=== PATIENT | female | born 1965 | race Caucasian/White ===

== ENCOUNTER 2023-10-11 09:29 | Observation (INO) ==
--- NOTE | 2023-10-11 09:50 | Emergency Department Note ---
Impression & Plan Acute hip pain ADMIT ED Provider Note HPI: History obtained from patient. The patient is a 57-year-old female with history of left hip prosthesis performed about [address] Burnham of orthopedics, presents the emergency department with a chief complaint of left hip pain after mechanical fall today. Patient states she fell in her house on some liquid that was on the floor and she fell on her left knee. Patient states she began to have pain acutely in her left hip after the fall. She denies any pain in her left knee on arrival. Patient states the pain is in the area of her left hip, she does have some limited ability to flex at the left hip but states that is very painful. Patient states she was not able to put weight on the left lower extremity after the fall but she was able to ambulate up on her right lower extremity and utilize the wall for stability to call for assistance. ROS: - Per HPI Differential Diagnosis: Left hip fracture, dislocated prosthesis of the left hip, hardware failure/fracture of the left hip, soft tissue injury/contusion, femur fracture, pelvic fracture, amongst other potential pathologies. *Outpatient medications and allergy history reviewed. PE: General: Alert, obese, no acute distress HEENT: Normocephalic, trachea midline Eyes: Extraocular eye movement is intact, no scleral erythema Pulmonary: Clear to auscultation bilaterally, no wheezing Cardio: Regular rate and rhythm GI: Abdomen is soft to palpation : No suprapubic tenderness MSK: No evidence of trauma or malformation of the extremities, no edema, limited ability to flex at the left hip secondary to pain, motor and sensory function is intact distally in the left foot Skin: No evidence of rash Neuro: Alert, no focal deficits Psychiatric: Cooperative INDEPENDENT INTERPRETATIONS: panel monitor: (As interpreted by myself): - An order was placed for continuous cardiac monitoring - Patient was noted to be in sinus rhythm with a rate of 65 Interventions provided in ED: -IV morphine, IV Zofran, Flexeril Medical Decision Making: X-ray imaging of the left hip as well as the left knee do not show any evidence of fracture or dislocation. Patient was given IV morphine and IV Zofran for pain. Lab work shows no leukocytosis, hemoglobin is stable at 16.6, platelet count is normal, CMP does not show any evidence of any critical findings. On my reassessment patient is still having pain in her left hip with movement and did not feel that she could put weight on the leg despite best efforts, therefore CT imaging of the pelvis was obtained that does not show any evidence of any occult fracture. Patient was given another round of pain medication and on reevaluation she was still not able to utilize a walker as she could not move her leg very well secondary to pain at the left hip. Given the patient's ambulatory dysfunction and the fact that she does live alone, I did not feel that she was safe for discharge with the current amount of pain and ambulatory dysfunction that she was having. I feel she would benefit from PT/OT consultation at this time. I discussed with case management and secondary to insurance patient was not able to be directly placed to a rehab facility and will require admission for PT/OT consultation first. Case was then discussed with the on-call hospitalist, Dr. Toure, and the patient was placed for admission in stable condition for further management. Patient was in agreement to this plan. Consultants/Discussions held with other healthcare providers: -Hospitalist, Dr. Toure Disposition discussion held by myself with: -Patient and patient's friend at the bedside Diagnosis: 1. Left hip pain status post fall, acute 2. Ambulatory dysfunction, acute, status post fall 3. History of left hip prosthesis Disposition: Admission Josiah Esparza DO Emergency Medicine Past Med/Surg History Problem List (Updated 10/11/23 @ 13:15 by Josiah Esparza DO) Acute hip pain (Acute) Encounter for pre-operative examination Medical History (Updated 10/11/23 @ 13:15 by Josiah Esparza DO) Morbid obesity Sleep apnea CPAP Surgical History History of wisdom tooth extraction History of arthroscopy RT KNEE History of total hip arthroplasty LEFT History of bilateral tubal ligation History of section X 3 History of dilatation and curettage History of colonoscopy H/O varicose vein stripping Family History Grandfather (Maternal) Family history of diabetes mellitus Grandfather (Paternal) Family history of diabetes mellitus Grandmother (Paternal) Family history of diabetes mellitus Grandmother (Maternal) Family history of diabetes mellitus Social History Smoking Status: Current every day smoker Tobacco Type: Cigarettes Cigarettes Per Day: 10-15 CIGARETTES PER DAY X 9 YEARS; Second Hand Exposure: No; Do You Dip or Chew Tobacco: No; Hx Alcohol Use: Yes Alcohol type: beer Hx Substance Use: No Preferred Language: Cameroonian Communication Ability: Effective Toll Settlement Clerk Required: No Beliefs That Will Affect Care: None Current Living Situation: Spouse Feels Safe at Home: Yes Assistive Devices: CPAP and Glasses Allergies Allergies Allergy/AdvReac Type Severity Reaction Status Date / Time clindamycin Allergy Hives Verified 07/09/23 09:38 Home Meds Home Medications Medication Instructions Recorded Confirmed celecoxib 200 mg capsule 200 mg PO BID 07/09/23 10/11/23 semaglutide (weight loss) 0.25 0.25 mg subcut WK 10/11/23 10/11/23 mg/0.5 mL subcutaneous pen injector (Wegovy) Previous Rx's Medication Instructions Recorded ondansetron 4 mg disintegrating 4 mg PO Q6H PRN nausea and 07/09/23 tablet vomiting #15 tabs cyclobenzaprine 10 mg tablet 10 mg PO TID PRN muscle spasm #30 10/11/23 tabs Results & Data (ED) Vital Signs Vital Signs - 24 hr 10/11/23 09:45 10/11/23 09:51 10/11/23 10:45 Temperature 36.5 C Temperature Source Oral Pulse Rate 68 71 67 Pulse Rhythm Regular Respiratory Rate 16 16 Respiratory Effort / Characteristics Non-Labored Respiratory Depth Normal Blood Pressure 121/76 Blood Pressure Mean 91 Pulse Oximetry 95 96 Oxygen Delivery Method Room Air Room Air Sepsis Recent Fever Within 48 Hours No Sepsis New/Unexplained Change in Mental Status N/A Sepsis Action Taken by Nursing No Action Required 10/11/23 11:00 10/11/23 11:30 10/11/23 12:12 Temperature Temperature Source Pulse Rate 64 71 63 Pulse Rhythm Respiratory Rate 20 15 23 Respiratory Effort / Characteristics Respiratory Depth Blood Pressure 114/70 114/67 96/52 L Blood Pressure Mean 83 83 66 Pulse Oximetry 98 96 98 Oxygen Delivery Method Sepsis Recent Fever Within 48 Hours Sepsis New/Unexplained Change in Mental Status Sepsis Action Taken by Nursing Laboratory Data 10/11/23 09:52 10/11/23 09:52 Lab Results 10/11/23 Range/Units 09:52 WBC 9.46 (4.8-10.8) K/ul RBC 5.83 H (4.20-5.40) M/uL Hgb 16.6 H (12.0-16.0) g/dl Hct 50.0 H (37.0-47.0) % MCV 85.8 (80.0-100.0) fL MCH 28.5 (25.0-34.0) pg MCHC 33.2 (32.0-36.0) g/dL RDW Std Deviation 45.8 (36.4-46.3) fL RDW Coeff of Elvia 14.6 H (11.5-14.5) % Plt Count 263 (130-400) K/uL MPV 9.5 (9.4-12.4) fL Immature Gran % (Auto) 0.5 % Neut % (Auto) 73.8 % Lymph % (Auto) 17.9 % [place] % (Auto) 6.1 % Eos % (Auto) 1.2 % Baso % (Auto) 0.5 % Neut # (Auto) 6.98 H (1.40-6.50) K/uL Lymph # (Auto) 1.69 (1.20-3.40) K/uL [place] # (Auto) 0.58 (0.11-0.59) K/uL Eos # (Auto) 0.11 (0.00-0.50) K/uL Baso # (Auto) 0.05 (0.00-0.20) K/uL Immature Gran # (Auto) 0.05 (0.01-0.20) K/uL PT 10.3 (9.0-12.0) Seconds INR 0.9 (0.9-1.1) Sodium 137 (136-145) mmol/L Potassium 4.3 (3.5-5.1) mmol/L Chloride 105 (98-107) mmol/L Carbon Dioxide 26 (21-32) mmol/L Anion Gap 6 (3-11) BUN 15 (6-23) mg/dl Creatinine 0.82 (0.6-1.2) mg/dl Est Cr Clr Drug Dosing 105.8 ml/min Est GFR ( Amer) 92.1 ml/min Est GFR (Non-Af Amer) 79.4 ml/min BUN/Creatinine Ratio 18.3 (10-20) Glucose 99 (70-99(Fasting)) mg/dl Calcium 9.6 (8.6-10.3) mg/dl Total Bilirubin 0.5 (0.2-1.0) mg/dl AST 19 (13-39) U/L ALT 18 (7-52) U/L Alkaline Phosphatase 62 (34-104) U/L Total Protein 7.5 (6.0-8.3) gm/dl Albumin 4.3 (3.4-5.0) gm/dl Globulin 3.2 (2.5-4.0) gm/dl Albumin/Globulin Ratio 1.3 (0.9-2) Lipase 21 (11-82) U/L Administered Medications Discontinued Medications Cyclobenzaprine HCl (Cyclobenzaprine Hcl 10 Mg Tab) 10 mg PO NOW STA Stop: 10/11/23 15:05 Last Admin: 10/11/23 15:06 Dose: 10 mg Documented By: SANG Morphine Sulfate (Morphine Sulfate 4 Mg/Ml 1 Ml Carp\Vial) 4 mg IV NOW STA Stop: 10/11/23 09:49 Last Admin: 10/11/23 09:58 Dose: 4 mg Documented By: ROBEL Morphine Sulfate (Morphine Sulfate 4 Mg/Ml 1 Ml Carp\Vial) 4 mg IV NOW STA Stop: 10/11/23 13:32 Last Admin: 10/11/23 13:38 Dose: 4 mg Documented By: ROBEL Ondansetron HCl (Ondansetron Inj 2 Mg/Ml 2 Ml Vial) 4 mg IV NOW STA Stop: 10/11/23 09:49 Last Admin: 10/11/23 09:58 Dose: 4 mg Documented By: ROBEL Oxycodone/Acetaminophen (Percocet 5/325mg Homepack) 1 each PO UD ONE Stop: 10/11/23 14:44 Last Admin: 10/11/23 15:05 Dose: 1 each Documented By: SANG Imaging Data Radiologist's Impression: Hip/Pelvis X-Ray 10/11/23 09:46 XR hip JACKSON 2v w pelvis HISTORY: 57 years-old Female fall. L hip pain acute hemipelvis and left hip status post fall COMPARISON: CT 07/09/2023 TECHNIQUE: AP view of the pelvis with 2 views of the hips FINDINGS: Unremarkable appearance of the left hip arthroplasty. Surgical anchors noted within the left greater tuberosity. Mild osteoarthritis of the right hip. No acute fracture or dislocation. IMPRESSION: 1. No acute fracture or dislocation. 2. Unremarkable appearance of the left hip arthroplasty. ACT 112: Negative or not required by law. The above report was generated using voice recognition software. It may contain grammatical, syntax or spelling errors. Electronically signed by: Wesly Saavedra M.D. 10/11/2023 11:09 AM Knee X-Ray 10/11/23 09:50 LEFT KNEE 2 VIEWS CLINICAL HISTORY: Fall. Left knee pain. FINDINGS: AP and crosstable lateral views of the left knee are obtained. No prior studies are available for comparison at the time of dictation. The skeletal structures are well mineralized. No fracture is seen. The joint spaces are maintained. There are marginal osteophytes and degenerative beaking of the tibial spine. No joint effusion is seen. A calcified fabella is incidentally noted. There is prepatellar soft tissue swelling. IMPRESSION: No acute bony abnormality is identified. Electronically signed by: Conor Salgado M.D. 10/11/2023 10:[address] 10/11/23 11:23 CT pelvis wo con HISTORY: 57 years-old Female L hip/groin pain s/p fall acute pain of the left hip status post fall COMPARISON: Radiographs of same day, CT 07/09/2023 TECHNIQUE: Multiple axial CT images of the pelvis were obtained without IV contrast. A dose lowering technique was used consistent with the principals of ALARA. FINDINGS: Atherosclerosis of the aorta. Mildly distended urinary bladder. Slight prominence of the anteflexed uterus with possible uterine fibroids. No bowel obstruction or bowel wall thickening. No free fluid. No lymphadenopathy. Unremarkable appearance of the musculature. Degenerative changes of the imaged lower lumbar spine. Mild degeneration of the SI joints. No acute sacral insufficiency fracture identified. Moderate degeneration of the pubic symphysis. Mild right hip osteoarthritis. Unremarkable appearance of the visualized left hip arthroplasty. Study is limited secondary to surrounding streak artifact. Surgical anchors in the left greater trochanter. IMPRESSION: 1. No acute fracture or dislocation identified. 2. Unremarkable appearance of the left hip arthroplasty. ACT 112: Negative or not required by law. The above report was generated using voice recognition software. It may contain grammatical, syntax or spelling errors. Electronically signed by: Wesly Saavedra M.D. 10/11/2023 1:00 PM Discharge Plan Visit Data Chief Complaint: Fall Stated Complaint: FALL-L HIP PAIN ED Provider: Josiah Esparza Discharge Problem: Acute hip pain Patient Disposition: Home - Self-Care Condition: Good Discharge Instructions Activity Restrictions/Additional Instructions: Please follow-up with your primary care doctor in 2 to 3 days for reassessment and further management. Please follow-up with orthopedics in the office if you continue to have pain in the area of your left hip prosthesis. Please utilize Tylenol or Motrin as needed for pain, please follow dosage instructions for these medications as indicated on the packaging. Please return the emergency room if you have any new or worsening symptoms. Forms Stand Alone Forms: [facility], Important Visit Information Prescriptions Prescriptions: New cyclobenzaprine 10 mg tablet 10 mg PO TID PRN (Reason: muscle spasm) Qty: 30 0RF No Action celecoxib 200 mg capsule 200 mg PO BID Rx Instructions: filled june 2023 30 day supply ondansetron 4 mg tablet,disintegrating 4 mg PO Q6H PRN (Reason: nausea and vomiting) Qty: 15 0RF Rx Instructions: filled july 2023, 4 day supply Wegovy 0.25 mg/0.5 mL pen injector 0.25 mg SUBCUT WK Rx Instructions: filled 10/04/23 Referrals Referrals: Juan Burnham MD [Surgeon] - Helio Orozco D.O. [Primary Care Provider] - Discharge Problem: Acute hip pain Qualifiers: Laterality: left Qualified Code(s): M25.552 - Pain in left hip
[2023-10-11] MEDS: ONDANSETRON INJ 2 MG/ML 2 ML VIAL IV STA (09:58)
[2023-10-11] MEDS: MoRPHine SULFATE 4 MG/ML 1 ML CARP\\VIAL IV STA ×2 (09:58→13:38)
[2023-10-11 10:09] LABS: Basophils # (auto) 0.05 K/uL (0.00-0.20); Basophils % (auto) 0.5 %; Eosinophils # (auto) 0.11 K/uL (0.00-0.50); Eosinophils % (auto) 1.2 %; Hemoglobin 16.6 g/dl (12.0-16.0); Immature Granulocytes # (auto) 0.05 K/uL (0.01-0.20); Immature Granulocytes % (auto) 0.5 %; Lymphocytes # (auto) 1.69 K/uL (1.20-3.40); Lymphocytes % (auto) 17.9 %; Mean Corpuscular Hemoglobin 28.5 pg (25.0-34.0); Mean Corpuscular Hgb Conc 33.2 g/dL (32.0-36.0); Mean Corpuscular Volume 85.8 fL (80.0-100.0); Mean Platelet Volume 9.5 fL (9.4-12.4); Monocytes # (auto) 0.58 K/uL (0.11-0.59); Monocytes % (auto) 6.1 %; Neutrophils # (auto) 6.98 K/uL (1.40-6.50); Neutrophils % (auto) 73.8 %; Platelet Count 263 K/uL (130-400); RDW Coefficient of Variation 14.6 % (11.5-14.5); RDW Standard Deviation 45.8 fL (36.4-46.3); Red Blood Count 5.83 M/uL (4.20-5.40); White Blood Count 9.46 K/ul (4.8-10.8)
[2023-10-11 10:31] LABS: INR 0.9 (0.9-1.1); Prothrombin Time 10.3 Seconds (9.0-12.0)
[2023-10-11 10:32] LABS: Albumin Globulin Ratio 1.3 (0.9-2); Albumin Level 4.3 gm/dl (3.4-5.0); BUN Creatinine Ratio 18.3 (10-20); Bilirubin,Total 0.5 mg/dl (0.2-1.0); Calcium 9.6 mg/dl (8.6-10.3); Creatinine Clr Calc Pharmacy 105.8 ml/min; Est GFR (African American) 92.1 ml/min; Est GFR (Non-African American) 79.4 ml/min; Globulin 3.2 gm/dl (2.5-4.0); Potassium 4.3 mmol/L (3.5-5.1); Total Protein 7.5 gm/dl (6.0-8.3)
--- NOTE | 2023-10-11 10:39 | XRay Report ---
LEFT KNEE 2 VIEWS CLINICAL HISTORY: Fall. Left knee pain. FINDINGS: AP and crosstable lateral views of the left knee are obtained. No prior studies are availab le for comparison at the time of dictation. The skeletal structures are well mineralized. No fracture is seen. The joint spaces are maintained. There are marginal osteophytes and degenerative beaking of the tibial spine. No joint effusion is seen. A calcified fabella is incidentally noted. There is pre patellar soft tissue swelling. IMPRESSION: No acute bony abnormality is identified. Electronically signed by: Conor Salgado M.D. 10/11/2023 10:38 AM
--- NOTE | 2023-10-11 11:10 | XRay Report ---
XR hip JACKSON 2v w pelvis HISTORY: 57 years-old Female fall. L hip pain acute hemipelvis and left hip status post fall COMPARISON: CT 07/09/2023 TECHNIQUE: AP view of the pelvis with 2 views of the hips FINDINGS: Unremarkable appearance of the left hip arthroplasty. Surgical anchors noted within the left greater tuberosity. Mild osteoarthritis of the right hip. No acute fracture or dislocation. IMPRESSION: 1. No acute fracture or dislocation. 2. Unremarkable appearance of the left hip arthroplasty. ACT 112: Negative or not required by law. The above report was generated using voice recognition software. It may contain grammatical, syntax o r spelling errors. Electronically signed by: Wesly Saavedra M.D. 10/11/2023 11:09 AM
--- OUTSIDE RECORDS SUMMARY | 2023-10-11 11:51 | External Medical Summary ---
Author Name Unknown Address Unknown Organization [facility]:[address] [place] [address] Laboratory Report Ordering Provider Test Date Status LUIS MATHUR 08/04/2023 06:31 Final Observation Date Value Abnormality Reference (Units ) Status WBC 08/04/2023 09:16 8.8 3.1-9.2 (10^3/M3) Final RBC 08/04/2023 09:16 5.60 Above high normal 3.70-5.50 (10^6/M3) Final Hemoglobin 08/04/2023 09:16 17.1 Above high normal 11.5-16.1 (GR/DL) Final HCT 08/04/2023 09:16 49.5 Above high normal 34.5-47.8 (%) Final MCV 08/04/2023 09:16 88.5 82.6-95.8 (CU MICR) Final MCH 08/04/2023 09:16 30.6 27.9-32.9 (NANCY GR) Final MCHC 08/04/2023 09:16 34.6 32.6-35.4 (%) Final RDW 08/04/2023 09:16 14.4 11.4-14.6 (%) Final PLT 08/04/2023 09:16 300 140-350 (10^3/M3) Final MPV 08/04/2023 09:16 7.7 7.0-10.6 (CU MICR) Final Neutrophils/100 leukocytes in Blood 08/04/2023 09:16 61.7 40.0-75.0 (%) Final Lymphs % 08/04/2023 09:16 27.1 17.0-45.0 (%) Final Monos 08/04/2023 09:16 7.9 1.0-11.0 (%) Final %EOS 08/04/2023 09:16 2.7 0.0-6.0 (%) Final Basos 08/04/2023 09:16 0.6 0.0-2.0 (%) Final Neutrophils [#/volume] in Semen by Manual count 08/04/2023 09:16 5.4 1.5-8.0 (10^3/M3) Final Lymphs % 08/04/2023 09:16 2.4 0.8-3.2 (10^3/M3) Final Monos 08/04/2023 09:16 0.7 0.0-0.8 (10^3/M3) Final #EOS 08/04/2023 09:16 0.2 0.0-0.4 (10^3/m3) Final #BASO 08/04/2023 09:16 0.1 0.0-0.2 (10^3/m3) Final Performing Location [facility] [address] [place] [address]
--- OUTSIDE RECORDS SUMMARY | 2023-10-11 11:51 | External Medical Summary | Continuity of Care Document ---
Author Name Unknown Organization [facility] Address [address] [place] [address] Phone [phone] Problems Active Problems Provider Date Depressive disorder Mayra Ferrer PA-C Onset: Gastroesophageal reflux disease ZITA Nieto Onset: 09/27/2015 Obesity Mayra Ferrer PA-C Onset: 2015 Mixed hyperlipidemia Mayra Ferrer PA-C Onset: 0 09/27/2015 Smoker Melly Rizo PA-C Onset: 09/2021 Social History Type Date Description Comments Sex Unknown Tobacco Use Reviewed: 06/16/23 Current Cigarette Smok er Smoking Status Reviewed: 06/16/23 Current Cigarette Sm oker Tobacco Use Reviewed: 06/16/23 Never Smoked Cigars Tobacco Use Reviewed: 06/16/23 Never Smoked A Pipe Smokeless Tobacco 06/16/2023 Never Used Smokeless To bacco Allergies and adverse reactions Active Allergies Criticality Reaction | Severity Comments Date Celebrex Unable to assess criticality 07/28/2023 Inactive Allergies NKDA Unable to assess criticality 09/27/2015 Medications Active Medications SIG Qnty Indications Order ing Provider Date [id number] Tablets take 1 tablet by mouth twice a day Unknown 07/09/[id number] 1 by mouth twice daily Unknown 07/09/2023 Cpap Autotitration Machine With Mask And ALL SuppliesDevice dx sleep apnea auto titrate 7-20 cm with humidified air 1units G47.33 Lyric Durant MD, PhD 03/31/2016 History Medications [id number] Capsules 1 bid x 2 weeks Juan Burnham MD 06/29/2023 - 07/12/2023 Medications Administered in Office Medication SIG Qnty Indications Ordering Provider Date Injection Methylprednisolone Acetate 20 MGInjection ZITA Simpson 04/06/2018 Injection Methylprednisolone Acetate 20 MGInjection Nando Retana 02/18/2017 Immunizations CPT Code Status Date Vaccine Lot # [id number] Given 07/24/2023 Shingrix 41064 Given 02/06/2023 Shingrix 25605 Given 02/06/2023 Shingrix 66059 Given 06/24/2021 Moderna Covid-1 9 Vaccine 50mcg Booster-EMR Doc Only [id number] 02321 Given 07/23/2020 Moderna Sars-Co v-2 (Cov-19) vacc,100 mcg/ 0.5 mL 12Y+EMR Doc Only [id number] 03528 Given 06/25/2020 Moderna Sars-Co v-2 (Cov-19) vacc,100 mcg/ 0.5 mL 12Y+EMR Doc Only [id number] 91167 Given 10/15/2011 Tdap (Tetanus, diphtheria & acel. pertussis) Adacel or Boostrix 43548 Refused 01/14/2023 Moderna Sars-Co v-2 (Covid-19) Vaccine, BiValent Booster [id number] Refused 01/14/2023 Influenza Virus Vaccine, Quadrivalent, Split Virus, Im Use 6-35 [id number] Refused 01/15/2022 Influenza Virus Vaccine, Quadrivalent, Split Virus, Im Use 6-35 47719 Refused 01/25/2019 Influenza Virus Vaccine, Quadrivalent, Im Use [id number] Refused 04/06/2018 Influenza Virus Vaccine, Quadrivalent, [place] Use [id number] Refused 01/12/2017 Influenza Virus Vaccine, Quadrivalent, Im Use 90435 Refused 02/25/2016 Influenza Virus Vaccine, Quadrivalent, Im Use [id number] Refused 09/27/2015 Influenza Virus Vaccine, Quadrivalent, Im Use Vital Signs Date Vital Result Comment 06/16/2023 9:26am BP Systolic 118 mmHg BP Diastolic 80 mmHg Body Temperature 98.1 F Heart Rate 80 /min Respiratory Rate 18 /min Weight 282.00 lb Weight 127.915 kg 02/11/2023 8:26am BP Systolic 110 mmHg BP Diastolic 76 mmHg Body Temperature 98.3 F Heart Rate 76 /min Respiratory Rate 16 /min Weight 261.38 lb Weight 118.560 kg Results Test Acquired Date Facility Test Result H/L Range N ote Laboratory test finding 08/04/2023 [facility] [address] [place] [address] [phone] Insulin <pending> CBC W/Diff 02/11/2023 [facility] [address] [place], [place] [id number] [phone] WBC 8.6 10^3/M3 3.1-9.2 RBC 5.92 10^6/M3 High 3.70-5.50 HGB 17.5 GR/DL High 11.5-16.1 HCT 52.2 % High 34.5-47.8 MCV 88.1 CUMICR 82.6-95.8 MCH 29.5 PICOGR 27.9-32.9 MCHC 33.5 % 32.6-35.4 RDW 14.4 % 11.4-14.6 PLT 315 10^3/M3 140-350 MPV 8.0 CUMICR 7.0-10.6 %Neut 58.6 % 40.0-75.0 %Lymph 31.5 % 17.0-45.0 %[place] 5.3 % 1.0-11.0 %Eos 3.8 % 0.0-6.0 %Baso 0.8 % 0.0-2.0 #Neut 5.0 10^3/M3 1.5-8.0 #Lymph 2.7 10^3/M3 0.8-3.2 #[place] 0.5 10^3/M3 0.0-0.8 #Eos 0.3 10^3/m3 0.0-0.4 #Baso 0.1 10^3/m3 0.0-0.2 Laboratory test finding 02/11/2023 [facility] [address] [place] [address] [phone] Sed Rate 6 0-20 Comp. Met 02/11/2023 [facility] [address] [place] [address] [phone] Glucose 90 mg/dL 70-110 BUN 16 mg/dL 6-25 Creatinine 0.8 mg/dL 0.5-1.2 Sodium 141 mEq/L 135-145 Potassium 4.7 mEq/L 3.5-5.0 Chloride 104 mEq/L 95-107 Co-2 25 mEq/L 24-31 Alk Phos 60 IU/L 43-122 Alt(SGPT) 16 IU/L 10-40 Ast(Sgot) 16 IU/L 3-42 T.Bilirubin 0.5 mg/dL 0.1-1.3 Calcium 9.9 mg/dL 8.5-10.6 Tot.Protein 7.1 g/dL 5.8-8.0 Albumin 4.2 g/dL 3.0-5.2 Globulin 2.9 g/dL 2.0-3.4 GFR 79 ML/MIN/1.73SQM >60 Procedures Date Code Description Status 08/04/2023 83877 Venipuncture Routine Complet ed 06/16/2023 G2211 Continuation of care e/m vis it add on Completed 02/11/2023 29907 Venipuncture Routine Complet ed 11/18/2022 [id number] Mammogram Completed 04/10/2016 [id number] Colonoscopy Completed Medical Devices Description No Information Available Encounters Type Date Location Provider Dx Diagnosis Office Visit 06/16/2023 9:30a [facility] Melly Rizo PA-C G47.33 Obstructive sleep apnea (adult) (pediatric) Office Visit 02/11/2023 8:30a [facility] Melly Rizo PA-C R59.0 Localized enlarged lymph nodes Assessments Date Code Description Provider 08/04/2023 E78.5 Hyperlipidemia, unspecified Lab - [facility] 08/04/2023 R73.01 Impaired fasting glucose Lab - [facility] 08/04/2023 E66.01 Morbid (severe) obesity due to excess calories Lab - [facility] 06/16/2023 G47.33 Obstructive sleep apnea (akila lt) (pediatric) Melly Rizo PA-C 02/11/2023 R59.0 Localized enlarged lymph nod es Melly Rizo PA-C Plan of Treatment Future Appointment(s):* 08/11/2023 10:00 am - Melly Rizo PA-C at [facility] 06/16/2023 - Melly Rizo PA-C* G47.33 Obstructive sleep apnea (adult) (pediatric)* Comments:* The patient is doing well with her auto titrating CPAP machine. She is noticing great benefit from it and is compliant with it. Functional Status Description No Information Available Mental Status Description No Information Available Referrals Refer to Reason for Referral Status Appt Brad e [facility] Hematology/Oncology H&H still elevated Scheduled 09/01/[address] [place] [address] [phone]
--- OUTSIDE RECORDS SUMMARY | 2023-10-11 11:51 | External Medical Summary | Continuity of Care Document ---
Author Name Unknown Organization [facility] Address [address] [place] [id number] Encounter [facility] [id number] Date(s): 08/02/23 - 08/02/23 [facility] [id number], [place] [address] [phone] Encounter Diagnosis Erythrocytosis(Discharge Diagnosis) - 08/02/23 Discharge Disposition: Home or Self Care Attending Physician: MD Nathanael, Kalen Black Referring Physician: JOSE R Rizo, Melly Cano Allergies, Adverse Reactions, Alerts Substance Reaction Severity Status CeleBREX Stomach ulcer Active Medications No Known Medications Mental Status 08/02/23 Barriers to Learning one year None evide nt Mandatory Health Literacy Documentation Yes Health Literacy Communication Barriers N ever Primary Language Uzbek Problem List Condition Confirmation Course Effective Dates Status Health St atus Informant Erythrocytosis Confirmed Active CLEMENTE on CPAP Confirmed Active Diagnosis Diagnosis Type Effective Dates Health Status Cl inical Service Informant Erythrocytosis Discharge Diagnosis 08/02/23 Non-Specified Vital Signs Most recent to oldest [Reference Range]: 1 Height 168 cm (08/02/23 9:29 AM) Patient Weight 126.8 kg (08/02/23 9:29 AM) Body Mass Index 44.93 kg/m2 (08/02/23 9:29 AM) Temperature [36.5-37.9 DegC] 35.7 DegC *LOW* (08/02/23 9:29 AM) Heart Rate 75 bpm (08/02/23 9:29 AM) Respiratory Rate 18 br/min (08/02/23 9:29 AM) Blood Pressure 141/79mmHg (08/02/23 9:29 AM) Cuff Pulse Pressure 62 mmHg (08/02/23 9:29 AM) BP Location # 1 Left Arm (08/02/23 9:29 AM) Social History Social History Type Response Smoking Status Current every day he nette smoker Sex Female Patient Care team information Care Team Related Persons Name: GUALBERTO KONG
--- OUTSIDE RECORDS SUMMARY | 2023-10-11 11:51 | External Medical Summary | Continuity of Care Document ---
Author Name Unknown Organization [facility] Address [address] [place] [address] Phone [phone] Problems Active Problems Provider Date Depressive disorder Mayra Ferrer PA-C Onset: Gastroesophageal reflux disease ZITA Nieto Onset: 09/27/2015 Obesity Mayra Ferrer PA-C Onset: 2015 Mixed hyperlipidemia Mayra Ferrer PA-C Onset: 0 09/27/2015 Smoker Melly Rizo PA-C Onset: 09/2021 Obstructive sleep apnea syndrome Melly Rizo PA-C Onset: Note: Document: 08/02/23 - H ematology Consult Social History Type Date Description Comments Sex [...] SIG Qnty Indications Order ing Provider Date [id number] Tablets take 1 tablet by mouth twice a day Unknown 07/09/[id number] 1 by mouth twice daily Unknown 07/09/2023 Cpap Autotitration Machine With Mask And ALL SuppliesDevice dx sleep apnea auto titrate 7-20 cm with humidified air 1units G47.33 Lyric Durant MD, PhD 03/31/2016 History Medications [id number] Capsules 1 bid x 2 weeks Juan Burnham MD 06/29/2023 - 07/12/2023 Medications Administered in Office Medication SIG Qnty Indications Ordering Provider Date Injection Methylprednisolone Acetate 20 MGInjection ZITA Simpson 04/06/2018 Injection Methylprednisolone Acetate 20 MGInjection Nando Retana 02/18/2017 Immunizations CPT Code Status Date Vaccine Lot # [id number] Given 07/24/2023 Shingrix 23042 Given 02/06/2023 Shingrix 66585 Given 02/06/2023 Shingrix 10503 Given 06/24/2021 Moderna Covid-1 9 Vaccine 50mcg Booster-EMR Doc Only [id number] 95237 Given 07/23/2020 Moderna Sars-Co v-2 (Cov-19) vacc,100 mcg/ 0.5 mL 12Y+EMR Doc Only [id number] 21748 Given 06/25/2020 Moderna Sars-Co v-2 (Cov-19) vacc,100 mcg/ 0.5 mL 12Y+EMR Doc Only [id number] 39355 Given 10/15/2011 Tdap (Tetanus, diphtheria & acel. pertussis) Adacel or Boostrix 04603 Refused 01/14/2023 Moderna Sars-Co v-2 (Covid-19) Vaccine, BiValent Booster 12y+ 05941 Refused 01/14/2023 Influenza Virus Vaccine, Quadrivalent, Split Virus, Im Use 6-35 02320 Refused 01/15/2022 Influenza Virus Vaccine, Quadrivalent, Split Virus, Im Use 6-35 63985 Refused 01/25/2019 Influenza Virus Vaccine, Quadrivalent, Im Use 86982 Refused 04/06/2018 Influenza Virus Vaccine, Quadrivalent, Im Use 95764 Refused 01/12/2017 Influenza Virus Vaccine, Quadrivalent, Im Use 31713 Refused 02/25/2016 Influenza Virus Vaccine, Quadrivalent, Im Use 65038 Refused 09/27/2015 Influenza Virus Vaccine, Quadrivalent, Im [...] Facility Test Result H/L Range N ote Comp. Met 08/04/2023 [facility] [address] [place] [address] [phone] Glucose 102 mg/dL 70-110 1 BUN 16 mg/dL 6-25 Creatinine 0.8 mg/dL 0.5-1.2 Sodium 140 mEq/L 135-145 Potassium 4.6 mEq/L 3.5-5.0 Chloride 104 mEq/L 95-107 Co-2 27 mEq/L 24-31 Alk Phos 61 IU/L 43-122 Alt(SGPT) 16 IU/L 10-40 Ast(Sgot) 14 IU/L 3-42 T.Bilirubin 0.6 mg/dL 0.1-1.3 Calcium 9.5 mg/dL 8.5-10.6 Tot.Protein 7.2 g/dL 5.8-8.0 Albumin 4.3 g/dL 3.0-5.2 Globulin 2.9 g/dL 2.0-3.4 GFR 79 ML/MIN/1.73SQM >60 Lipid 08/04/2023 [facility]. [address] [place], [place] [id number] [phone] Cholesterol 202 mg/dL High 0-200 2 Triglyceride 145 mg/dL 0-150 3 HDLD 40 mg/dL See Comment 4 Measured LDL 161 mg/dL High 0-130 5 Calc VLDL 29.0 mg/dL See Comment 6 Chol/HDL 5.0 RATIO See Comment 7 Non-HDL 162 mg/dL See Comment 8 Hba1c 08/04/2023 [facility] [address] [place] [address] [phone] A1c 5.70 % 4.70-6.50 9 Laboratory test finding 08/04/2023 [facility] [address] [place], [place] [id number] [phone] Insulin 17.90 uIU/mL 1.90-23.00 TSH With Reflex 08/04/2023 [facility] [address] [place] [address] [phone] TSH (Reflex) 2.29 uIU/mL 0.50-6.00 CBC W/Diff 08/04/2023 [facility] [address] [place] [address] [phone] WBC 8.8 10^3/M3 3.1-9.2 RBC 5.60 10^6/M3 High 3.70-5.50 HGB 17.1 GR/DL High 11.5-16.1 HCT 49.5 % High 34.5-47.8 MCV 88.5 CUMICR 82.6-95.8 MCH 30.6 PICOGR 27.9-32.9 MCHC 34.6 % 32.6-35.4 RDW 14.4 % 11.4-14.6 PLT 300 10^3/M3 140-350 MPV 7.7 CUMICR 7.0-10.6 %Neut 61.7 % 40.0-75.0 %Lymph 27.1 % 17.0-45.0 %[place] 7.9 % 1.0-11.0 %Eos 2.7 % 0.0-6.0 %Baso 0.6 % 0.0-2.0 #Neut 5.4 10^3/M3 1.5-8.0 #Lymph 2.4 10^3/M3 0.8-3.2 #[place] 0.7 10^3/M3 0.0-0.8 #Eos 0.2 10^3/m3 0.0-0.4 #Baso 0.1 10^3/m3 0.0-0.2 CBC W/Diff 02/11/2023 [facility] [address] [place] [address] [phone] WBC 8.6 10^3/M3 3.1-9.2 RBC 5.92 10^6/M3 High 3.70-5.50 HGB 17.5 GR/DL High 11.5-16.1 HCT 52.2 % High 34.5-47.8 MCV 88.1 CUMICR 82.6-95.8 MCH 29.5 PICOGR 27.9-32.9 MCHC 33.5 % 32.6-35.4 RDW 14.4 % 11.4-14.6 PLT 315 10^3/M3 140-350 MPV 8.0 CUMICR 7.0-10.6 %Neut 58.6 % 40.0-75.0 %Lymph 31.5 % 17.0-45.0 %[place] 5.3 % 1.0-11.0 %Eos 3.8 % 0.0-6.0 %Baso 0.8 % 0.0-2.0 #Neut 5.0 10^3/M3 1.5-8.0 #Lymph 2.7 10^3/M3 0.8-3.2 #[place] 0.5 10^3/M3 0.0-0.8 #Eos 0.3 10^3/m3 0.0-0.4 #Baso 0.1 10^3/m3 0.0-0.2 Laboratory test finding 02/11/2023 [facility]. [address] [place] [address] [phone] Sed Rate 6 0-20 Comp. Met 02/11/2023 [facility] [address] [place], [place] [id number] [phone] Glucose 90 mg/dL 70-110 BUN 16 mg/dL [...] 2.9 g/dL 2.0-3.4 GFR 79 ML/MIN/1.73SQM >60 1 FASTING 2 CHOLESTEROL Less than 200mg/dl Low risk 201-239 mg/dl Borderline risk Equal to or greater 240mg/dl High risk CHOLESTEROL COMMENTS REPORT FAXED TO DOCTOR, REQUESTED ON REQUISITION.08/04/23 LM 3 TRIGLYCERIDES Less than 150mg/dl Normal 150-199mg/dl Borderline 200-499mg/dl High Greater than 500mg/dl Very High 4 HDL <40mg/dl Elevated Risk 41-59mg/dl Risk >=60mg/dl Least Risk 5 LDL <100mg/dl Optimal 100-129mg/dl Near Optimal 130-159mg/dl Borderline High 160-189mg/dl High >=190 Very High 6 VLDL Less than 30mg/dl Normal 7 CHOL/HDL <4.0 Optimal 4.0-5.0 Borderline >6.0 High Risk 8 NON-HDL 30mg/dl higher than LDL Target 9 MEAN GLUCOSE IN mg/d L/A1c% POOR CONTROL FAIR CONTROL GOOD CONTROL EXCELLENT CONTROL 360-14 210-9 180-8 120-6 330-13 150-7 90-5 300-12 270-11 240-10 Procedures Date Code Description Status 08/04/2023 12804 Venipuncture Routine Complet ed 06/16/2023 G2211 Continuation of care e/m vis it add on Completed 02/11/2023 13611 Venipuncture Routine Complet ed 11/18/2022 [id number] Mammogram Completed 04/10/2016 [id number] Colonoscopy Completed Medical Devices Description No Information Available Encounters Type Date Location Provider Dx Diagnosis Office Visit 06/16/2023 9:30a Lopez Rizo PA-C G47.33 Obstructive sleep apnea (adult) (pediatric) Office Visit 02/11/2023 8:30a Lopez Rizo PA-C R59.0 Localized enlarged lymph nodes Assessments Date Code Description Provider 08/04/2023 E78.5 Hyperlipidemia, unspecified Lyric Durant MD, PhD 08/04/2023 E78.5 Hyperlipidemia, unspecified Lab - [place] 08/04/2023 R73.01 Impaired fasting glucose Sandoval Durant MD, PhD 08/04/2023 R73.01 Impaired fasting glucose Lab - [place] 08/04/2023 E66.01 Morbid (severe) obesity due to excess calories Lyric Durant MD, PhD 08/04/2023 E66.01 Morbid (severe) obesity due to excess calories Lab - [place] 06/16/2023 G47.33 Obstructive slee p apnea (adult) (pediatric) Melly Rizo PA-C 02/11/2023 R59.0 Localized enlarged lymph nod es Melly Rizo PA-C Plan of Treatment Future Appointment(s):* 08/11/2023 10:00 am - Melly Rizo PA-C at [place] 06/16/2023 - Melly Rizo PA-C* G47.33 Obstructive sleep apnea (adult) (pediatric)* Comments:* The patient is doing well with her auto titrating CPAP machine. She is noticing great benefit from it and is compliant with it. Functional Status Description No Information Available Mental Status Description No Information Available Referrals Description No Information Available"
--- OUTSIDE RECORDS SUMMARY | 2023-10-11 11:51 | External Medical Summary ---
Author Name Unknown Address Unknown Organization K1C:[facility] [address] [place] [address] Laboratory Report Ordering Provider Test Date Status LUIS MATHUR 08/04/2023 06:31 Final Observation Date Value Abnormality Reference (Units ) Status HbA1C 08/04/2023 10:13 5.70 4.70-6.50 (%) Final MEAN GLUCOSE IN mg/dL/A1c%<b r/> POOR CONTROL FAIR CONTROL GOOD CONTROL EXCELLENT CONTROL
360-14 210-9 180-8 120-6
330-13 150-7 90-5
300-12
270-11
240-10 Performing Location [facility] [address] [place] [address]
--- OUTSIDE RECORDS SUMMARY | 2023-10-11 11:51 | External Medical Summary | Continuity of Care Document ---
Author Name Unknown Organization [facility] Address [address] [place] [address] Phone [phone] Problems Active Problems Provider Date Depressive disorder [...] SIG Qnty Indications Order ing Provider Date Pxzszwvmuq70pg Tablets take 1 tablet by mouth twice a day Unknown 07/09/[address] 1 by mouth twice daily Unknown 07/09/2023 Cpap Autotitration Machine With Mask And ALL SuppliesDevice dx sleep apnea auto titrate 7-20 cm with humidified air 1units G47.33 Lyric Durant MD, PhD 03/31/2016 History Medications [id number] Capsules 1 bid x 2 weeks Juan Burnham MD 06/29/2023 - 07/12/2023 Medications Administered in Office Medication SIG Qnty Indications Ordering Provider Date Injection Methylprednisolone Acetate 20 MGInjection ZITA Simpson 04/06/2018 Injection Methylprednisolone Acetate 20 MGInjection Nando Retana 02/18/2017 Immunizations CPT Code Status Date Vaccine Lot # [id number] Given 07/24/2023 Shingrix 67261 Given 02/06/2023 Shingrix 68876 Given 02/06/2023 Shingrix 52484 Given 06/24/2021 Moderna Covid-1 9 Vaccine 50mcg Booster-EMR Doc Only [id number] 65669 Given 07/23/2020 Moderna Sars-Co v-2 (Cov-19) vacc,100 mcg/ 0.5 mL 12Y+EMR Doc Only [id number] 53826 Given 06/25/2020 Moderna Sars-Co v-2 (Cov-19) vacc,100 mcg/ 0.5 mL 12Y+EMR Doc Only [id number] 49930 Given 10/15/2011 Tdap (Tetanus, diphtheria & acel. pertussis) Adacel or Boostrix 77330 Refused 01/14/2023 Moderna Sars-Co v-2 (Covid-19) Vaccine, BiValent Booster 12y+ [id number] Refused 01/14/2023 Influenza Virus Vaccine, Quadrivalent, Split Virus, Im Use 6-35 30191 Refused 01/15/2022 Influenza Virus Vaccine, Quadrivalent, Split Virus, Im Use 6-35 47851 Refused 01/25/2019 Influenza Virus Vaccine, Quadrivalent, Im Use 18887 Refused 04/06/2018 Influenza Virus Vaccine, Quadrivalent, Im Use 56882 Refused 01/12/2017 Influenza Virus Vaccine, Quadrivalent, Im Use 25394 Refused 02/25/2016 Influenza Virus Vaccine, Quadrivalent, Im Use 29935 Refused 09/27/2015 Influenza Virus Vaccine, Quadrivalent, Im [...] H/L Range N ote Comp. Met 08/04/2023 [facility] [address] [place] [address] [phone] Glucose 102 mg/dL 70-110 1 BUN 16 [...] 2.0-3.4 GFR 79 ML/MIN/1.73SQM >60 Lipid 08/04/2023 [facility] [address] [place] [address] [phone] Cholesterol 202 mg/dL High 0-200 2 Triglyceride 145 mg/dL 0-150 3 HDLD 40 mg/dL See Comment 4 Measured LDL 161 mg/dL High 0-130 5 Calc VLDL 29.0 mg/dL See Comment 6 Chol/HDL 5.0 RATIO See Comment 7 Non-HDL 162 mg/dL See Comment 8 Hba1c 08/04/2023 [facility] [address] [place] [address] [phone] A1c 5.70 % 4.70-6.50 9 Laboratory test finding 08/04/2023 [facility] [address] [place] [address] [phone] Insulin 17.90 uIU/mL 1.90-23.00 TSH With Reflex 08/04/2023 [facility] [address] [place] [address] [phone] TSH (Reflex) 2.29 uIU/mL 0.50-6.00 CBC W/Diff 08/04/2023 [facility] [address] [place], [place] [id number] [phone] WBC 8.8 10^3/M3 3.1-9.2 RBC 5.60 10^6/M3 High 3.70-5.50 HGB 17.1 GR/DL High 11.5-16.1 HCT 49.5 % High 34.5-47.8 MCV 88.5 CUMICR 82.6-95.8 MCH 30.6 PICOGR 27.9-32.9 MCHC 34.6 % 32.6-35.4 RDW 14.4 % 11.4-14.6 PLT 300 10^3/M3 140-350 MPV 7.7 CUMICR 7.0-10.6 %Neut 61.7 % 40.0-75.0 %Lymph 27.1 % 17.0-45.0 %[place] 7.9 % 1.0-11.0 %Eos 2.7 % 0.0-6.0 %Baso 0.6 % 0.0-2.0 #Neut 5.4 10^3/M3 1.5-8.0 #Lymph 2.4 10^3/M3 0.8-3.2 #[place] 0.7 10^3/M3 0.0-0.8 #Eos 0.2 10^3/m3 0.0-0.4 #Baso 0.1 10^3/m3 0.0-0.2 CBC W/Diff 02/11/2023 [facility] [address] [place], [place] [address] [phone] WBC 8.6 10^3/M3 3.1-9.2 RBC 5.92 10^6/M3 High 3.70-5.50 HGB 17.5 GR/DL High 11.5-16.1 HCT 52.2 % High 34.5-47.8 MCV 88.1 CUMICR 82.6-95.8 MCH 29.5 PICOGR 27.9-32.9 MCHC 33.5 % 32.6-35.4 RDW 14.4 % 11.4-14.6 PLT 315 10^3/M3 140-350 MPV 8.0 CUMICR 7.0-10.6 %Neut 58.6 % 40.0-75.0 %Lymph 31.5 % 17.0-45.0 %[place] 5.3 % 1.0-11.0 %Eos 3.8 % 0.0-6.0 %Baso 0.8 % 0.0-2.0 #Neut 5.0 10^3/M3 1.5-8.0 #Lymph 2.7 10^3/M3 0.8-3.2 #[place] 0.5 10^3/M3 0.0-0.8 #Eos 0.3 10^3/m3 0.0-0.4 #Baso 0.1 10^3/m3 0.0-0.2 Laboratory test finding 02/11/2023 [facility] [address] [place] [address] [phone] Sed Rate 6 0-20 Comp. Met 02/11/2023 [facility] [address] [place], [place] [address] [phone] Glucose 90 mg/dL 70-110 BUN 16 mg/dL [...] 240-10 Procedures Date Code Description Status 08/04/2023 53941 Venipuncture Routine [facility] ed 06/16/2023 G2211 Continuation of care e/m vis it add on Completed 02/11/2023 56044 Venipuncture Routine Complet ed 11/18/2022 [id number] Mammogram Completed 04/10/2016 [id number] Colonoscopy Completed Medical Devices Description No Information Available Encounters Type Date Location Provider Dx Diagnosis Office Visit 06/16/2023 9:[place] G47.33 Obstructive sleep apnea (adult) (pediatric) Office Visit 02/11/2023 8:30a [place] Melly Rizo PA-C R59.0 Localized enlarged lymph nodes Assessments Date Code Description Provider 08/04/2023 E78.5 Hyperlipidemia, unspecified Lab - [place] 08/04/2023 R73.01 Impaired fasting glucose Lab - [place] 08/04/2023 E66.01 Morbid (severe) obesity due to excess calories Lab - [place] 06/16/2023 G47.33 Obstructive sleep apnea (akila lt) (pediatric) Melly Rizo PA-C 02/11/2023 R59.0 Localized enlarged lymph nod es Melly Rizo PA-C Plan of Treatment Future Appointment(s):* 08/11/2023 10:00 am - Melly Rizo PA-C at [place] 06/16/2023 - Melly Rizo PA-C* G47.33 Obstructive sleep apnea (adult) (pediatric)* Comments:* The patient is doing well with her auto titrating CPAP machine. She is noticing great benefit from it and is compliant with it. Functional Status Description No Information Available Mental Status Description No Information Available Referrals Refer to Reason for Referral Status Appt Brad e PSH Hematology/Oncology H&H still elevated Scheduled 09/01/[address] [place] [address] [phone]"
--- OUTSIDE RECORDS SUMMARY | 2023-10-11 11:51 | External Medical Summary | Continuity of Care Document ---
Author Name Unknown Organization [place] Address [address] [facility], [place] [address] Phone [phone] Problems Active Problems Provider Date Depressive disorder Mayra Ferrer PA-C Onset: Gastroesophageal reflux disease ZITA Nieto Onset: 09/27/2015 Obesity Mayra Ferrer PA-C Onset: 2015 Mixed hyperlipidemia Mayra Ferrer PA-C Onset: 0 09/27/2015 Smoker Melly Rizo PA-C Onset: 09/2021 Obstructive sleep apnea syndrome Melly Rizo PA-C Onset: Note: Document: 08/02/23 - H ematology Consult Morbid obesity Melly Rizo PA-C Onset: 11/2023 Impaired fasting glycemia Melly Rizo PA-C O nset: 08/11/2023 Hyperlipidemia Melly Rizo PA-C Onset: 11/2023 Social History Type Date Description Comments Sex Unknown Tobacco Use Reviewed: 08/11/23 Current Cigarette Smok er Smoking Status Reviewed: 08/11/23 Current Cigarette Sm oker Tobacco Use Reviewed: 08/11/23 Never Smoked Cigars Tobacco Use Reviewed: 08/11/23 Never Smoked A Pipe Smokeless Tobacco 08/11/2023 Never Used Smokeless To bacco Allergies and adverse reactions Active Allergies Criticality Reaction | Severity Comments Date Celebrex Unable to assess criticality 07/28/2023 Inactive Allergies NKDA Unable to assess criticality 09/27/2015 Medications Active Medications SIG Qnty Indications Order ing Provider Date Zepbound2.5mg/0.5ML Solution Auto-Inject inject 2.5 mg sc every week x 4 weeks, then start 5 mg weekly. 2ml E66.01 Lyric Durant MD, PhD 08/11/2023 Cpap Autotitration Machine With Mask And ALL SuppliesDevice dx sleep apnea auto titrate 7-20 cm with humidified air 1units G47.33 Lyric Durant MD, PhD 03/31/2016 History Medications No Active Medications Unknown 08/11/2023 - 08/11/2023 [id number] Tablets take 1 tablet by mouth twice a day Unknown 07/09/2023 - 08/11/[id number] 1 by mouth twice daily Unknown 07/09/2023 - 08/11/2023 [id number] Capsules 1 bid x 2 weeks Juan Burnham MD 06/29/2023 - 07/12/2023 Medications Administered in Office Medication SIG Qnty Indications Ordering Provider Date Injection Methylprednisolone Acetate 20 MGInjection ZITA Simpson 04/06/2018 Injection Methylprednisolone Acetate 20 MGInjection Nando Retana 02/18/2017 Immunizations CPT Code Status Date Vaccine Lot # [id number] Given 07/24/2023 Shingrix [id number] Given 02/06/2023 Shingrix 12897 Given 02/06/2023 Shingrix 35874 Given 06/24/2021 Moderna Covid-1 9 Vaccine 50mcg Booster-EMR Doc Only [id number] 24371 Given 07/23/2020 Moderna Sars-Co v-2 (Cov-19) vacc,100 mcg/ 0.5 mL 12Y+EMR Doc Only [id number] 39923 Given 06/25/2020 Moderna Sars-Co v-2 (Cov-19) vacc,100 mcg/ 0.5 mL 12Y+EMR Doc Only [id number] 13866 Given 10/15/2011 Tdap (Tetanus, diphtheria & acel. pertussis) Adacel or Boostrix 48494 Refused 01/14/2023 Moderna Sars-Co v-2 (Covid-19) Vaccine, BiValent Booster [id number]+ [id number] Refused 01/14/2023 Influenza Virus Vaccine, Quadrivalent, Split Virus, Im Use 83458 Refused 01/15/2022 Influenza Virus Vaccine, Quadrivalent, Split Virus, Im Use 49921 Refused 01/25/2019 Influenza Virus Vaccine, Quadrivalent, Im Use 30579 Refused 04/06/2018 Influenza Virus Vaccine, Quadrivalent, Im Use 92214 Refused 01/12/2017 Influenza Virus Vaccine, Quadrivalent, Im Use 41815 Refused 02/25/2016 Influenza Virus Vaccine, Quadrivalent, Im Use 69840 Refused 09/27/2015 Influenza Virus Vaccine, Quadrivalent, Im Use Vital Signs Date Vital Result Comment 08/11/2023 10:07am BP Systolic 120 mmHg BP Diastolic 76 mmHg Body Temperature 98.2 F Heart Rate 80 /min Respiratory Rate 16 /min Weight 280.00 lb Weight 127.008 kg 06/16/2023 9:26am BP Systolic 118 mmHg BP Diastolic 80 mmHg Body Temperature 98.1 F Heart Rate 80 /min Respiratory Rate 18 /min Weight 282.00 lb Weight 127.915 kg Results Test Acquired Date Facility Test Result H/L Range N ote Comp. Met 08/04/2023 [facility]. [address] [place] [address] [phone] Glucose 102 mg/dL 70-110 1 BUN 16 [...] 2.0-3.4 GFR 79 ML/MIN/1.73SQM >60 Lipid 08/04/2023 [facility]. [address] [place] [address] [phone] Cholesterol 202 mg/dL High 0-200 2 Triglyceride 145 mg/dL 0-150 3 HDLD 40 mg/dL See Comment 4 Measured LDL 161 mg/dL High 0-130 5 Calc VLDL 29.0 mg/dL See Comment 6 Chol/HDL 5.0 RATIO See Comment 7 Non-HDL 162 mg/dL See Comment 8 Hba1c 08/04/2023 [facility] [address] [place] [address] [phone] A1c 5.70 % 4.70-6.50 9 Laboratory test finding 08/04/2023 [facility]. [address] [place] [address] [phone] Insulin 17.90 uIU/mL 1.90-23.00 TSH With Reflex 08/04/2023 [facility]. [address] [place] [address] [phone] TSH (Reflex) 2.29 uIU/mL 0.50-6.00 CBC W/Diff 08/04/2023 [facility] [address] [place], [place] [id number] [phone] WBC 8.8 10^3/M3 3.1-9.2 RBC 5.60 10^6/M3 High 3.70-5.50 HGB 17.1 GR/DL High 11.5-16.1 HCT 49.5 % High 34.5-47.8 MCV 88.5 CUMICR 82.6-95.8 MCH 30.6 PICOGR 27.9-32.9 MCHC 34.6 % 32.6-35.4 RDW 14.4 % 11.4-14.6 PLT 300 10^3/M3 140-350 MPV 7.7 CUMICR 7.0-10.6 %Neut 61.7 % 40.0-75.0 %Lymph 27.1 % 17.0-45.0 %[place] 7.9 % 1.0-11.0 %Eos 2.7 % 0.0-6.0 %Baso 0.6 % 0.0-2.0 #Neut 5.4 10^3/M3 1.5-8.0 #Lymph 2.4 10^3/M3 0.8-3.2 #[place] 0.7 10^3/M3 0.0-0.8 #Eos 0.2 10^3/m3 0.0-0.4 #Baso 0.1 10^3/m3 0.0-0.2 1 FASTING 2 CHOLESTEROL Less than 200mg/dl [...] 270-11 240-10 Procedures Date Code Description Status 08/11/2023 G2211 Continuation of care e/m vis it add on Completed 08/04/2023 71750 Venipuncture Routine Complet ed 06/16/2023 G2211 Continuation of care e/m vis it add on Completed 11/18/2022 [id number] Mammogram Completed 04/10/2016 [id number] Colonoscopy Completed Medical Devices Description No Information Available Encounters Type Date Location Provider Dx Diagnosis Office Visit 08/11/2023 10:00a Lopez Rizo PA-C E78.5 Hyperlipidemia, unspecified R73.01 Impaired fasting glu cose E66.01 Morbid (severe) obes ity due to excess calories G47.33 Obstructive sleep ap matty (adult) (pediatric) R74.8 Abnormal levels of o ther serum enzymes Z87.11 Personal history of peptic ulcer disease Office Visit 06/16/2023 9:30a Lopez gustafson PA-C G47.33 Obstructive sleep apnea (adult) (pediatric) Assessments Date Code Description Provider 08/11/2023 E78.5 Hyperlipidemia, unspecified Melly Rizo PA-C 08/11/2023 R73.01 Impaired fasting glucose Mila marisol Rizo PA-C 08/11/2023 E66.01 Morbid (severe) obesity due to excess calories Melly Rizo PA-C 08/11/2023 G47.33 Obstructive slee p apnea (adult) (pediatric) Melly Rizo PA-C 08/11/2023 R74.8 Abnormal levels of other ser um enzymes Melly Rizo PA-C 08/11/2023 Z87.11 Personal history of peptic u lcer disease Melly Rizo PA-C 08/04/2023 E78.5 Hyperlipidemia, unspecified Lyric Durant MD, PhD 08/04/2023 E78.5 Hyperlipidemia, unspecified Lab - [place] 08/04/2023 R73.01 Impaired fasting glucose Sandoval Durant MD, PhD 08/04/2023 R73.01 Impaired fasting glucose Lab - [place] 08/04/2023 E66.01 Morbid (severe) obesity due to excess calories Lyric Durant MD, PhD 08/04/2023 E66.01 Morbid (severe) obesity due to excess calories Lab - [place] 06/16/2023 G47.33 Obstructive slee p apnea (adult) (pediatric) Melly Rizo PA-C Plan of Treatment Future Appointment(s):* 02/21/2024 11:30 am - Melly Rizo PA-C at [place] * 02/14/2024 6:30 am - [facility] - [place] 08/11/2023 - Melly Rizo PA-C* E78.5 Hyperlipidemia, unspecified* Comments: * Discussed labs 08/04/23. * Follow up:* 6 months (30 min) with fasting labs 1 week prior: CMP, lipid, A1C, insulin, CBC. * R73.01 Impaired fasting glucose * E66.01 Morbid (severe) obesity due to excess calories* New Medication:* Zepbound 2.5 mg/0.5ML - inject 2.5 mg sc every week x 4 weeks, then start 5 mg weekly. * G47.33 Obstructive sleep apnea (adult) (pediatric) * R74.8 Abnormal levels of other serum enzymes * Z87.11 Personal history of peptic ulcer disease Functional Status Description No Information Available Mental Status Description No Information Available Referrals Description No Information Available"
--- OUTSIDE RECORDS SUMMARY | 2023-10-11 11:51 | External Medical Summary ---
Author Name Unknown Address Unknown Organization [facility]:[address] [place] [address] Laboratory Report Ordering Provider Test Date Status LUIS MATHUR 08/04/2023 06:31 Final Observation Date Value Abnormality Reference (Units ) Status Cholesterol 08/04/2023 09:55 202 Above high normal 0-2 00 (MG/DL) Final CHOLESTEROL
Less than 2 00mg/dl Low risk
201-239 mg/dl Borderline risk
Equal to or greater 240mg/dl High risk
CHOLESTEROL COMMENTS
REPORT FAXED TO DOCTOR, REQUESTED ON REQUISITION.08/04/23 LM Triglyceride 08/04/2023 09:55 145 0-150 (MG/ DL) Final TRIGLYCERIDES
Less than 150mg/dl Normal
150-199mg/dl Borderline
200-499mg/dl High
Greater than 500mg/dl Very High HDL 08/04/2023 09:55 40 SEE COMMENT ( MG/DL) Final HDL
<40mg/dl Elevated R isk
41-59mg/dl Risk
>=60mg/dl Least Risk Cholesterol in LDL [Mass/volume] in Serum or Plasma 08/04/2023 09:55 161 Above high normal 0-130 (MG/DL) Final LDL
<100mg/dl Optimal<b r/> 100-129mg/dl Near Optimal
130-159mg/dl Borderline High
160-189mg/dl High
>=190 Very High Cholesterol in VLDL [Mass/vo lume] in Serum or Plasma 08/04/2023 09:55 29.0 SEE COMMENT (MG/DL ) Final VLDL
Less than 30mg/dl Normal HDL 08/04/2023 09:55 5.0 SEE COMMENT ( RATIO) Final CHOL/HDL
<4.0 Optimal<b r/> 4.0-5.0 Borderline
>6.0 High Risk NON-HDL 08/04/2023 09:55 162 SEE COMMENT ( MG/DL) Final NON-HDL
30mg/dl higher than LDL Target Performing Location [facility] [address] [place] [address]
--- OUTSIDE RECORDS SUMMARY | 2023-10-11 11:51 | External Medical Summary | Continuity of Care Document ---
Author Name Unknown Organization [facility] Address [address] [place] [address] Phone [phone] Problems Active Problems Provider Date Depressive disorder [...] SIG Qnty Indications Order ing Provider Date Neqhedpspt45wi Tablets take 1 tablet by mouth twice a day Unknown 07/09/[address] 1 by mouth twice daily Unknown 07/09/2023 Cpap Autotitration Machine With Mask And ALL SuppliesDevice dx sleep apnea auto titrate 7-20 cm with humidified air 1units G47.33 Lyrci Durant MD, PhD 03/31/2016 History Medications [id number] Capsules 1 bid x 2 weeks Juan Burnham MD 06/29/2023 - 07/12/2023 Medications Administered in Office Medication SIG Qnty Indications Ordering Provider Date Injection Methylprednisolone Acetate 20 MGInjection ZITA Simpson 04/06/2018 Injection Methylprednisolone Acetate 20 MGInjection Nando Retana 02/18/2017 Immunizations CPT Code Status Date Vaccine Lot # [id number] Given 07/24/2023 Shingrix 49441 Given 02/06/2023 Shingrix 78336 Given 02/06/2023 Shingrix 94775 Given 06/24/2021 Moderna Covid-1 9 Vaccine 50mcg Booster-EMR Doc Only [id number] 01017 Given 07/23/2020 Moderna Sars-Co v-2 (Cov-19) vacc,100 mcg/ 0.5 mL 12Y+EMR Doc Only [id number] 47027 Given 06/25/2020 Moderna Sars-Co v-2 (Cov-19) vacc,100 mcg/ 0.5 mL 12Y+EMR Doc Only [id number] 45913 Given 10/15/2011 Tdap (Tetanus, diphtheria & acel. pertussis) Adacel or Boostrix 79739 Refused 01/14/2023 Moderna Sars-Co v-2 (Covid-19) Vaccine, BiValent Booster 12y+ [id number] Refused 01/14/2023 Influenza Virus Vaccine, Quadrivalent, Split Virus, Im Use 6-35 39614 Refused 01/15/2022 Influenza Virus Vaccine, Quadrivalent, Split Virus, Im Use 6-35 30430 Refused 01/25/2019 Influenza Virus Vaccine, Quadrivalent, Im Use 55173 Refused 04/06/2018 Influenza Virus Vaccine, Quadrivalent, Im Use 21272 Refused 01/12/2017 Influenza Virus Vaccine, Quadrivalent, Im Use 98220 Refused 02/25/2016 Influenza Virus Vaccine, Quadrivalent, Im Use 95718 Refused 09/27/2015 Influenza Virus Vaccine, Quadrivalent, Im [...] H/L Range N ote Comp. Met 08/04/2023 [facility]. [address] [place] [address] [phone] Glucose 102 mg/dL 70-110 1 BUN 16 [...] 2.0-3.4 GFR 79 ML/MIN/1.73SQM >60 Lipid 08/04/2023 [facility]. [address] [place] [address] [phone] Cholesterol 202 mg/dL High 0-200 2 Triglyceride 145 mg/dL 0-150 3 HDLD 40 mg/dL See Comment 4 Measured LDL 161 mg/dL High 0-130 5 Calc VLDL 29.0 mg/dL See Comment 6 Chol/HDL 5.0 RATIO See Comment 7 Non-HDL 162 mg/dL See Comment 8 Hba1c 08/04/2023 [facility]. [address] [place] [address] [phone] A1c 5.70 % 4.70-6.50 9 Laboratory test finding 08/04/2023 [facility]. [address] [place] [address] [phone] Insulin 17.90 uIU/mL 1.90-23.00 TSH With Reflex 08/04/2023 [facility]. [address] [place] [address] [phone] TSH (Reflex) 2.29 uIU/mL 0.50-6.00 CBC W/Diff 08/04/2023 [facility]. [address] [place], [place] [address] [phone] WBC 8.8 10^3/M3 3.1-9.2 RBC 5.60 10^6/M3 High 3.70-5.50 HGB 17.1 GR/DL High 11.5-16.1 HCT 49.5 % High 34.5-47.8 MCV 88.5 CUMICR 82.6-95.8 MCH 30.6 PICOGR 27.9-32.9 MCHC 34.6 % 32.6-35.4 RDW 14.4 % 11.4-14.6 PLT 300 10^3/M3 140-350 MPV 7.7 CUMICR 7.0-10.6 %Neut 61.7 % 40.0-75.0 %Lymph 27.1 % 17.0-45.0 %[place] 7.9 % 1.0-11.0 %Eos 2.7 % 0.0-6.0 %Baso 0.6 % 0.0-2.0 #Neut 5.4 10^3/M3 1.5-8.0 #Lymph 2.4 10^3/M3 0.8-3.2 #[place] 0.7 10^3/M3 0.0-0.8 #Eos 0.2 10^3/m3 0.0-0.4 #Baso 0.1 10^3/m3 0.0-0.2 CBC W/Diff 02/11/2023 [facility]. [address] [place], [place] [phone] WBC 8.6 10^3/M3 3.1-9.2 RBC 5.92 10^6/M3 High 3.70-5.50 HGB 17.5 GR/DL High 11.5-16.1 HCT 52.2 % High 34.5-47.8 MCV 88.1 CUMICR 82.6-95.8 MCH 29.5 PICOGR 27.9-32.9 MCHC 33.5 % 32.6-35.4 RDW 14.4 % 11.4-14.6 PLT 315 10^3/M3 140-350 MPV 8.0 CUMICR 7.0-10.6 %Neut 58.6 % 40.0-75.0 %Lymph 31.5 % 17.0-45.0 %[place] 5.3 % 1.0-11.0 %Eos 3.8 % 0.0-6.0 %Baso 0.8 % 0.0-2.0 #Neut 5.0 10^3/M3 1.5-8.0 #Lymph 2.7 10^3/M3 0.8-3.2 #[place] 0.5 10^3/M3 0.0-0.8 #Eos 0.3 10^3/m3 0.0-0.4 #Baso 0.1 10^3/m3 0.0-0.2 Laboratory test finding 02/11/2023 [facility]. [address] [place] [address] [phone] Sed Rate 6 0-20 Comp. Met 02/11/2023 [facility]. [address] [place], [place] [id number] [phone] Glucose 90 mg/dL 70-110 BUN 16 mg/dL [...] 240-10 Procedures Date Code Description Status 08/04/[address] [facility] ed 06/16/2023 G2211 Continuation of care e/m vis it add on Completed 02/11/2023 74090 Venipuncture Routine Complet ed 11/18/2022 [id number] Mammogram Completed 04/10/2016 [id number] Colonoscopy Completed Medical Devices Description No Information Available Encounters Type Date Location Provider Dx Diagnosis Office Visit 06/16/2023 9:30a [place] Rizo PA-C G47.33 Obstructive sleep apnea (adult) (pediatric) Office Visit 02/11/2023 8:30a [place] Melly Rizo PA-C R59.0 Localized enlarged lymph nodes Assessments Date Code Description Provider 08/04/2023 E78.5 Hyperlipidemia, unspecified Lab - [place] 08/04/2023 R73.01 Impaired fasting glucose Lab - [place] 08/04/2023 E66.01 Morbid (severe) obesity due to excess calories Lab - [place] 06/16/2023 G47.33 Obstructive sleep apnea (akila lt) (pediatric) Melly Rizo PA-C 02/11/2023 R59.0 Localized enlarged lymph nod es Melly Rizo PA-C Plan of Treatment Future Appointment(s):* 08/11/2023 10:00 am - Melly Rizo PA-C at [place] 06/16/2023 - Melly Rizo PA-C* G47.33 Obstructive [...] PSH Hematology/Oncology H&H still elevated Scheduled 09/01/[address] [place] [address] [phone]"
--- OUTSIDE RECORDS SUMMARY | 2023-10-11 11:51 | External Medical Summary ---
Author Name Unknown Address Unknown Organization [facility]:[address] [place] [address] Laboratory Report Ordering Provider Test Date Status LUIS MATHUR 08/04/2023 06:31 Final Observation Date Value Abnormality Reference (Units ) Status Glucose 08/04/2023 09:55 102 70-110 (MG/DL ) Final BUN 08/04/2023 09:55 16 6-25 (MG/DL) Final Creatinine 08/04/2023 09:55 0.8 0.5-1.2 (MG/ DL) Final Sodium 08/04/2023 09:55 140 135-145 (MEQ/ L) Final Potassium 08/04/2023 09:55 4.6 3.5-5.0 (MEQ/ L) Final Cl 08/04/2023 09:55 104 95-107 (MEQ/L ) Final CO2 08/04/2023 09:55 27 24-31 (MEQ/L) Final Alk Phos 08/04/2023 09:55 61 43-122 (IU/L) Final ALT (Alanine aminotransferase) 08/04/2023 09:55 16 10-40 (IU/L) Final AST (Aspartate aminotransferase) 08/04/2023 09:55 14 3-42 (IU/L) Final Bilirubin, Total 08/04/2023 09:55 0.6 0.1-1. 3 (MG/DL) Final Calcium 08/04/2023 09:55 9.5 8.5-10.6 (MG/ DL) Final Protein 08/04/2023 09:55 7.2 5.8-8.0 (G/DL ) Final Albumin 08/04/2023 09:55 4.3 3.0-5.2 (G/DL ) Final GLOBULIN 08/04/2023 09:55 2.9 2.0-3.4 (G/DL ) Final GFR (estimated) 08/04/2023 09:55 79 >60 (ML /MIN/1.73 SQM) Final Performing Location [facility] [address] [place] [address]
--- OUTSIDE RECORDS SUMMARY | 2023-10-11 11:52 | External Medical Summary ---
Author Name Unknown Address Unknown Organization K1[facility] [address] [place] [address] Laboratory Report Ordering Provider Test Date Status LUIS MATHUR 08/04/2023 06:31 Final Observation Date Value Abnormality Reference (Units ) Status Insulin level 08/04/2023 10:06 17.90 1.90-23.0 0 (uIU/mL) Final Performing Location [facility] [address] [place] [address]
--- OUTSIDE RECORDS SUMMARY | 2023-10-11 11:52 | External Medical Summary ---
Author Name Unknown Address Unknown Organization K1C:[facility] [address] [place] [address] Laboratory Report Ordering Provider Test Date Status LUIS MATHUR 08/04/2023 06:31 Final Observation Date Value Abnormality Reference (Units ) Status TSH 08/04/2023 09:53 2.29 0.50-6.00 (uI U/mL) Final Performing Location [facility] [address] [place] [address]
--- NOTE | 2023-10-11 13:01 | CT Scan Report ---
CT pelvis wo con HISTORY: 57 years-old Female L hip/groin pain s/p fall acute pain of the left hip status post fall COMPARISON: Radiographs of same day, CT 07/09/2023 TECHNIQUE: Multiple axial CT images of the pelvis were obtained without IV contrast. A dose lowering technique was used consistent with the principals of SIN. FINDINGS: Atherosclerosis of the aorta. Mildly distended urinary bladder. Slight prominence of the anteflexed u terus with possible uterine fibroids. No bowel obstruction or bowel wall thickening. No free fluid. N o lymphadenopathy. Unremarkable appearance of the musculature. Degenerative changes of the imaged lower lumbar spine. Mild degeneration of the SI joints. No acute s acral insufficiency fracture identified. Moderate degeneration of the pubic symphysis. Mild right hip osteoarthritis. Unremarkable appearance of the visualized left hip arthroplasty. Study is limited se condary to surrounding streak artifact. Surgical anchors in the left greater trochanter. IMPRESSION: 1. No acute fracture or dislocation identified. 2. Unremarkable appearance of the left hip arthroplasty. ACT 112: Negative or not required by law. The above report was generated using voice recognition software. It may contain grammatical, syntax o r spelling errors. Electronically signed by: Wesly Saavedra M.D. 10/11/2023 1:00 PM
[2023-10-11] MEDS: PERCOCET 5/325MG HOMEPACK PO ONE (15:05)
[2023-10-11] MEDS: CYCLOBENZAPRINE HCL 10 MG TAB PO STA (15:06)
--- NOTE | 2023-10-11 15:15 | History & Physical Report ---
Date of Service October 11, 2023 Assessment & Plan (1) Ambulatory dysfunction: Plan: Admit to med/surge on pulse oximetry Currently stable and nontoxic-appearing Patient has been having ongoing ambulatory dysfunction since sustaining a mechanical fall slipping in her hallway earlier today Patient denied any prodromal symptoms prior to her fall, did not hit her head or lose consciousness Since arrival to the ED she has been having significant muscle spasms in the left quadriceps and left groin with attempts to flex the left hip and knee X-rays of the bilateral hips, left knee, and CT of the pelvis were negative for acute trauma At this time it appears her ambulatory dysfunction is due to her muscle spasms due to inflammation after her fall earlier today Will continue with scheduled Tylenol, heat, and scheduled Flexeril for now Fall precautions, PT/OT consults Heart healthy diet SQ heparin for DVT prophylaxis AM CBC, BMP, mag (2) Fall: Plan: Patient fell due to slipping on water on her hallway floor No symptoms prior to her fall to suggest a different otology No acute trauma on exam or imaging Rest of care per ambulatory dysfunction (3) Acute hip pain: Plan: See ambulatory dysfunction (4) Tobacco abuse: Plan: As needed nicotine gum has been ordered, patient denies need for nicotine patch at this time Continue to stressed the importance of cessation Incentive spirometry and as needed O2 has been ordered (5) Sleep apnea: Plan: At bedtime CPAP ordered Plan The patient was discussed with Dr. Toure at the time of the admission History of Present Illness Chief Complaint: fall, left hip pain Primary Care Provider: Helio Dunbar is a 57-year-old female with a past medical history significant for morbid obesity, tobacco abuse, GERD, and left hip replacement approximately 20 years ago who presented to the [facility] via EMS with a chief complaint of left lower extremity pain and ambulatory dysfunction after sustaining a fall due to slipping in her bathroom earlier today. She remained stable in the ED. Labs including CBC, CMP, and high-sensitivity troponin were unremarkable. X-ray of the hip/pelvis, left knee, and CT of the pelvis were all read as negative for acute findings. We are asked to admit the patient for ongoing pain control and evaluation by PT/OT. Prior to admission the patient was given 2 doses of 4 mg IV morphine, 4 mg IV Zofran, and 10 mg p.o. Flexeril. Patient was sitting on the edge of her bed in no acute distress at time of the exam. She confirms that she had been in her normal state of health while walking in her hallway this morning when she slipped on some water which she did not notice on the floor. This caused her to fall landing on her left knee. She denies symptoms prior to her fall such as lightheadedness, dizziness, shortness of breath, chest pain, palpitations. She did not hit her head or lose consciousness. Her only pain has been in the left hip/groin significantly exacerbated with attempts to flex her left hip and left knee. She notes that her discomfort is caused by significant muscle spasms with movement at this time. Her symptoms are mild at rest but she has been unable to safely ambulate even with the use of a walker since arrival. She states that the morphine did not help, she is hoping the muscle relaxer will kick in soon as she just took this approximately 10 minutes ago. She smokes approximately 1/2 pack/day but denies alcohol use. She denies any other pain at this time including head, neck, back, chest, abdominal, and right lower extremity pain. She is a full code and she would want her son to make medical decisions for her if she cannot make them herself. Please refer to Dr. Toure's attestation for any changes to the treatment plan Allergies Allergy/AdvReac Type Severity Reaction Status Date / Time clindamycin Allergy Hives Verified 07/09/23 09:38 Home Medications Medication Instructions Recorded Confirmed Type celecoxib 200 mg capsule 200 mg PO BID 07/09/23 10/11/23 History ondansetron 4 mg disintegrating 4 mg PO Q6H PRN nausea and 07/09/23 10/11/23 Rx tablet vomiting #15 tabs cyclobenzaprine 10 mg tablet 10 mg PO TID PRN muscle spasm #30 10/11/23 Rx tabs semaglutide (weight loss) 0.25 0.25 mg subcut WK 10/11/23 10/11/23 History mg/0.5 mL subcutaneous pen injector (Wegovy) Past Med/Surg History Problem List (Updated 10/11/23 @ 15:38 by Pawel Solorzano PA-C) Tobacco abuse Ambulatory dysfunction Fall Acute hip pain (Acute) Encounter for pre-operative examination Medical History (Updated 10/11/23 @ 15:38 by Pawel Solorzano PA-C) Morbid obesity Sleep apnea CPAP Surgical History History of wisdom tooth extraction History of arthroscopy RT KNEE History of total hip arthroplasty LEFT History of bilateral tubal ligation History of section X 3 History of dilatation and curettage History of colonoscopy H/O varicose vein stripping Family History Grandfather (Maternal) Family history of diabetes mellitus Grandfather (Paternal) Family history of diabetes mellitus Grandmother (Paternal) Family history of diabetes mellitus Grandmother (Maternal) Family history of diabetes mellitus Social History Smoking Status: Current every day smoker Tobacco Type: Cigarettes Cigarettes Per Day: 10-15 CIGARETTES PER DAY X 9 YEARS; Second Hand Exposure: No; Do You Dip or Chew Tobacco: No; Hx Alcohol Use: Yes Alcohol type: beer Hx Substance Use: No Preferred Language: Syriac Communication Ability: Effective Beverage Host Required: No Beliefs That Will Affect Care: None Current Living Situation: Spouse Feels Safe at Home: Yes Assistive Devices: CPAP and Glasses Physical Exam Physical Exam: Physical Exam: General: In no acute distress, stated age, well-nourished, non-toxic appear ing HEENT: Normocephalic, atraumatic, no scleral icterus, pupils around round, symmetrical, and reactive to light, moist mucus membranes, trachea midline, no thyromegaly Chest/Pulm: No respiratory distress, symmetrical chest expansion, clear breath sounds throughout Cardiac: RRR, no murmurs noted Abdomen: Negative for ascites and bruising, normoactive bowel sounds, soft, non-tender to palpation throughout Musculoskeletal: Patient with significant muscle spasms in the left quadriceps and left groin with attempted flexion of the left hip and left knee, no acute trauma noted on inspection and palpation of the left hip, knee, foot, and RLE. No signs of trauma on inspection and palpation of the head, neck, thoracic/lumbar spine, and RLE Extremities: Radial, dorsalis pedis, and posterior tibial pulses are intact and symmetrical, no edema noted in the BL LE's Skin: Warm, dry, no rashes , lesions, or scars noted Neuro: Alert and oriented to person, place, month, year, and president, no focal defects, symmetrical sensation and distal reflexes in the BL LE's Psych: No acute distress, calm and cooperative during the exam Results & Data Results & Data Vital Signs (Past 12 Hours) Vital Signs Temp Pulse Resp BP Pulse Ox O2 Del Method 10/11/23 12:12 63 23 96/52 L 98 10/11/23 11:30 71 15 114/67 96 10/11/23 11:00 64 20 114/70 98 10/11/23 10:45 67 10/11/23 09:51 71 16 96 Room Air 10/11/23 09:45 36.5 C 68 16 121/76 95 Room Air Laboratory Results Abnormal lab results 10/11/23 Range/Units 09:52 RBC 5.83 H (4.20-5.40) M/uL Hgb 16.6 H (12.0-16.0) g/dl Hct 50.0 H (37.0-47.0) % RDW Coeff of Elvia 14.6 H (11.5-14.5) % Neut # (Auto) 6.98 H (1.40-6.50) K/uL Diagnostic Findings Hip/Pelvis X-Ray 10/11/23 09:46 XR hip JACKSON 2v w pelvis HISTORY: 57 years-old Female fall. L hip pain acute hemipelvis and left hip status post fall COMPARISON: CT 07/09/2023 TECHNIQUE: AP view of the pelvis with 2 views of the hips FINDINGS: Unremarkable appearance of the left hip arthroplasty. Surgical anchors noted within the left greater tuberosity. Mild osteoarthritis of the right hip. No acute fracture or dislocation. IMPRESSION: 1. No acute fracture or dislocation. 2. Unremarkable appearance of the left hip arthroplasty. ACT 112: Negative or not required by law. The above report was generated using voice recognition software. It may contain grammatical, syntax or spelling errors. Electronically signed by: Wesly Saavedra M.D. 10/11/2023 11:09 AM Knee X-Ray 10/11/23 09:50 LEFT KNEE 2 VIEWS CLINICAL HISTORY: Fall. Left knee pain. FINDINGS: AP and crosstable lateral views of the left knee are obtained. No prior studies are available for comparison at the time of dictation. The skeletal structures are well mineralized. No fracture is seen. The joint spaces are maintained. There are marginal osteophytes and degenerative beaking of the tibial spine. No joint effusion is seen. A calcified fabella is incidentally noted. There is prepatellar soft tissue swelling. IMPRESSION: No acute bony abnormality is identified. Electronically signed by: Conor Salgado M.D. 10/11/2023 10:[address] 10/11/23 11:23 CT pelvis wo con HISTORY: 57 years-old Female L hip/groin pain s/p fall acute pain of the left hip status post fall COMPARISON: Radiographs of same day, CT 07/09/2023 TECHNIQUE: Multiple axial CT images of the pelvis were obtained without IV contrast. A dose lowering technique was used consistent with the principals of SIN. FINDINGS: Atherosclerosis of the aorta. Mildly distended urinary bladder. Slight prominence of the anteflexed uterus with possible uterine fibroids. No bowel obstruction or bowel wall thickening. No free fluid. No lymphadenopathy. Unremarkable appearance of the musculature. Degenerative changes of the imaged lower lumbar spine. Mild degeneration of the SI joints. No acute sacral insufficiency fracture identified. Moderate degeneration of the pubic symphysis. Mild right hip osteoarthritis. Unremarkable appearance of the visualized left hip arthroplasty. Study is limited secondary to surrounding streak artifact. Surgical anchors in the left greater trochanter. IMPRESSION: 1. No acute fracture or dislocation identified. 2. Unremarkable appearance of the left hip arthroplasty. ACT 112: Negative or not required by law. The above report was generated using voice recognition software. It may contain grammatical, syntax or spelling errors. Electronically signed by: Wesly Saavedra M.D. 10/11/2023 1:00 PM Code Status & VTE Plan Code Status Full code VTE Prophylaxis Plan VTE Prophylaxis will be ordered: Yes Supervising Physician Co-Signing Physician Notes Patient seen and examined, chart reviewed, case discussed with Pawel Solorzano PA-C and I agree with the assessment and plan as above except as otherwise noted Labs and images reviewed 57yo F with uncontrolled pain following a fall. Fall when she slipped on a wet f ethel. Denies lightheadedness, dizziness, syncope, presyncope that contributed to her fall. Received morphine x 2, oxycodone x 1, followed by cyclobenzaprine ER but inadequate pain relief and is unable to ambulate due to difficulty bending her leg. Neurovascular intact. XR with no fracture or dislocation. CT without fracture/dislocation. No evidence of compartment syndrome. Recommended for PT/OT and potential placement due to inability to ambulate. Unable to be placed from the ER. Agree with assessment and management above. PG Care Time/CCT Total # of Minutes Spent Total Time Spent with Patient: Total time spent is greater than 50% in coordination of care (as documented) at patient's floor/unit and/or counseling patient: Coding [place] [address] INT INP/OBS CARE 2/55MIN Patient Type Established Medical Decision Making Moderate Complexity Diagnoses Ambulatory dysfunction R26.2 Fall W19.XXXA Acute hip pain M25.552 Laterality: left Tobacco abuse Z72.0 Sleep apnea G47.30 (3) Acute hip pain Laterality: left Qualified Code(s): M25.552 - Pain in left hip
[2023-10-11] MEDS ORDERED: NICOTINE POLACRILEX 2 MG GUM MT PRN (15:29)
[2023-10-11] MEDS: ACETAMINOPHEN 325 MG TAB PO ONE (16:35)
[2023-10-11] MEDS: ACETAMINOPHEN 325 MG TAB PO SCH (21:12)
[2023-10-11] MEDS: CYCLOBENZAPRINE HCL 10 MG TAB PO SCH (21:12)
[2023-10-11] MEDS: oxyCODONE HCL IR 5 MG TAB (IMMEDIATE RELEASE) PO STA (21:12)
[2023-10-11] MEDS: HEPARIN SOD 5,000 UNIT/0.5 ML VIAL SQ SCH (21:13)
[2023-10-11 21:16] LABS: Appearance Urine Clear (Clear); Bilirubin Urine Negative (Negative); Blood Urine Negative (Negative); Color Urine Yellow; Glucose Urine UA Negative (Negative); Ketones Urine Negative (Negative); Leukocyte Esterase Urine Negative (Negative); Nitrite Urine Negative (Negative); Protein Urine Negative (Negative); Specific Gravity Urine 1.012 (1.000-1.030); Urobilinogen Urine Negative (Negative)
[2023-10-12] MEDS: DOCUSATE SODIUM 100 MG CAP PO SCH (08:17)
[2023-10-12 08:18] LABS: Hematocrit (blood only) 52.2 % (37.0-47.0); Hemoglobin 17.1 g/dl (12.0-16.0); Mean Corpuscular Hemoglobin 28.4 pg (25.0-34.0); Mean Corpuscular Hgb Conc 32.8 g/dL (32.0-36.0); Mean Corpuscular Volume 86.6 fL (80.0-100.0); Mean Platelet Volume 9.4 fL (9.4-12.4); Platelet Count 286 K/uL (130-400); RDW Coefficient of Variation 15.3 % (11.5-14.5); RDW Standard Deviation 46.8 fL (36.4-46.3); Red Blood Count 6.03 M/uL (4.20-5.40); White Blood Count 9.49 K/ul (4.8-10.8)
[2023-10-12] MEDS: oxyCODONE HCL IR 5 MG TAB (IMMEDIATE RELEASE) PO PRN (08:20)
[2023-10-12 08:49] LABS: BUN Creatinine Ratio 17.4 (10-20); Calcium 9.2 mg/dl (8.6-10.3); Creatinine Clr Calc Pharmacy 100.8 ml/min; Est GFR (African American) 86.9 ml/min; Magnesium 2.3 mg/dl (1.7-2.4); Potassium 4.3 mmol/L (3.5-5.1)
[2023-10-12] MEDS: MoRPHine SULFATE 2 MG/ML CARP IV STA (09:50)
[2023-10-12] MEDS: LIDOCAINE 5% 1 PATCH TD STA (11:20)
--- NOTE | 2023-10-12 14:17 | Hospitalist Progress Note ---
Date of Service October 12, 2023 Assessment & Plan (1) Ambulatory dysfunction: Plan: 57yo fell, mechanical fall, after slipping on water at home and fell on to her LEFT knee with ongoing LEFT HIP pain and ambulatory dysfunction No prodromal symptoms, syncope or trauma to her head/LOC Xray of the hip/pelvis negative for acute fracture or dislocation, unremarkable appearance of LEFT hip arthoplasty (done by Dr Burnham per patient) Xray LEFT knee without acute bony abnormality noted CT pelvis No acute fracture or dislocation identified, unremarkable appearance of left hip arthoplasty Pain control: tylenol, heat Did get dose of oxycodone this morning, additional dose of morphine 2mg IV prior to getting better pain control, resting this afternoon Changing prior Flexeril scheduled to BACLOFEN to see if any better control Toradol 10mg IV x 1 available prn, can make continued prn if effective. Will need to remove celebrex from home med list/add to allergies given reports having rash after given in June/July by Dr Burnham/PA -- she isn't sure if was celebrex or naproxen but has tolerated toradol in the past. will place on pepcid 10mg BID (given prior CTAP in July w/ likely underlying PUD, however hgb levels stable/elevated w/ hx COPD) Fall precautions, PT/OT consulted DVT Proph: Heparin SQ while inpatient Will obtain MRI hip for further eval, can consult ortho if needed (again, seen by [facility]/Dr Burnham in the past), also repeat UA Monitor labs/pain control in AM (2) Fall: Plan: Mechanical as above, pain control/therapy evals, MRI hip for further eval (3) Acute hip pain: Plan: Stable but ongoing. See pain control as above, MRI ordered for further eval given anterior nature of pain (4) Tobacco abuse: Plan: As needed nicotine gum has been ordered, patient denies need for nicotine patch at this time Continue to stressed the importance of cessation Incentive spirometry and as needed O2 has been ordered (5) Sleep apnea: Plan: At bedtime CPAP ordered, has in room and using Plan continued inpatient stay MRI hip for further eval, ongoing pain control/therapy evals If MRI negative, inpatient for pain control and possible rehab vs home w/ HHPT pending therapy evals? Admission and Anticipated Discharge Date Admission Date: October 11, 2023 Supervising Physician Co-Signing Physician Notes The patient was not seen by me. The chart was reviewed. Case discussed with ZITA Murcia. Agree with assessment and plan Subjective Evaluated this afternoon, resting in bed. Reports not having much relief with the flexeril, discussed trying baclofen. She notes as celebrex on home med list when inquiring that she saw Dr Burnham/ZITA in June for her knee pain and was given this or naproxen and had allergic reaction . Will review and remove from med list/add to allergies to avoid. Has gotten toradol in the past without issue but has not tried this yet today but available and can continue if effective. Did poorly this AM w/ therapy and improved slightly this afternoon but pain ongoing. Has lidocaine patch in place and using some ice. No CP/SOB, abdominal pain, nausea or vomiting at this time. Will plan for MRI for further eval, can reach out to Helio tomorrow if in the building if any issues. Questions/concerns addressed at this time. Physical Exam Physical Exam: General: WN/WD obese female laying in bed, NAD HEENT: head atraumatic, normocephalic, +thick neck, trachea midline Resp: diminished in the bases but no w/c/r, on room air, CPAP in room CV: RRR, no significant m/r/g, no pitting edema/calf tenderness GI: +BS, soft/NT : no munoz MSK/Neuro: +abrasion/darkened L knee, +tenderness to palpation ANTERIOR LEFT HIP, increased with ROM. No shortening of leg compared right compared to the left. No issues w/ flexion at the knee/ankle, toes mobile, NVI Psych: AOx3, cooperative with exam Results & Data Results & Data Vital Signs (Past 12 Hours) Vital Signs Temp Pulse Pulse Resp BP Pulse Ox O2 Del Method 10/12/23 07:48 36.9 C 67 16 104/68 93 Room Air 10/12/23 03:58 72 13 96 FiO2 10/12/23 07:48 10/12/23 03:58 21 Laboratory Results 10/12/23 10/11/23 Range/Units 07:57 21:03 WBC 9.49 (4.8-10.8) K/ul RBC 6.03 H (4.20-5.40) M/uL Hgb 17.1 H (12.0-16.0) g/dl Hct 52.2 H (37.0-47.0) % MCV 86.6 (80.0-100.0) fL MCH 28.4 (25.0-34.0) pg MCHC 32.8 (32.0-36.0) g/dL RDW Std Deviation 46.8 H (36.4-46.3) fL RDW Coeff of Elvia 15.3 H (11.5-14.5) % Plt Count 286 (130-400) K/uL MPV 9.4 (9.4-12.4) fL Sodium 139 (136-145) mmol/L Potassium 4.3 (3.5-5.1) mmol/L Chloride 104 (98-107) mmol/L Carbon Dioxide 29 (21-32) mmol/L Anion Gap 6 (3-11) BUN 15 (6-23) mg/dl Creatinine 0.86 (0.6-1.2) mg/dl Est Cr Clr Drug Dosing 100.8 ml/min Est GFR ( Amer) 86.9 ml/min Est GFR (Non-Af Amer) 75.0 ml/min BUN/Creatinine Ratio 17.4 (10-20) Glucose 97 (70-99(Fasting)) mg/dl Calcium 9.2 (8.6-10.3) mg/dl Magnesium 2.3 (1.7-2.4) mg/dl Urine Color Yellow Urine Appearance Clear (Clear) Urine pH 6.0 (4.5-7.5) Ur Specific [place] 1.012 (1.000-1.030) Urine Protein Negative (Negative) Urine Glucose (UA) Negative (Negative) Urine Ketones Negative (Negative) Urine Blood Negative (Negative) Urine Nitrite Negative (Negative) Urine Bilirubin Negative (Negative) Urine Urobilinogen Negative (Negative) Ur Leukocyte Esterase Negative (Negative) PG Care Time/CCT Total # of Minutes Spent Total Time Spent with Patient: Total time spent is greater than 50% in coordination of care (as documented) at patient's floor/unit and/or counseling patient: Coding Level of Care Code 61876 SUB INP/OBS CARE 3/50MIN Diagnoses Ambulatory dysfunction R26.2 Fall W19.XXXA Acute hip pain M25.552 Laterality: left Tobacco abuse Z72.0 Sleep apnea G47.30 (3) Acute hip pain Laterality: left Qualified Code(s): M25.552 - Pain in left hip
[2023-10-12] MEDS: KETOROLAC TROMETHAMINE 15 MG/ML VIAL IV PRN (15:07)
[2023-10-12] MEDS: BACLOFEN 10 MG TAB PO SCH (15:07)
[2023-10-12] MEDS: FAMOTIDINE 10 MG TABLET PO SCH (22:16)
[2023-10-13 08:04] LABS: Hematocrit (blood only) 49.2 % (37.0-47.0); Hemoglobin 16.5 g/dl (12.0-16.0); Mean Corpuscular Hemoglobin 28.6 pg (25.0-34.0); Mean Corpuscular Hgb Conc 33.5 g/dL (32.0-36.0); Mean Corpuscular Volume 85.3 fL (80.0-100.0); Mean Platelet Volume 9.6 fL (9.4-12.4); Platelet Count 244 K/uL (130-400); RDW Standard Deviation 46.1 fL (36.4-46.3); Red Blood Count 5.77 M/uL (4.20-5.40); White Blood Count 8.42 K/ul (4.8-10.8)
[2023-10-13 08:24] LABS: BUN Creatinine Ratio 20.9 (10-20); Calcium 8.8 mg/dl (8.6-10.3); Creatinine Clr Calc Pharmacy 100.4 ml/min; Est GFR (African American) 86.9 ml/min; Magnesium 2.3 mg/dl (1.7-2.4); Potassium 4.2 mmol/L (3.5-5.1)
[2023-10-13] MEDS: KETOROLAC TROMETHAMINE 15 MG/ML VIAL IV PRN (08:45)
--- NOTE | 2023-10-13 08:51 | Hospitalist Progress Note ---
Date of Service October 13, 2023 Assessment & Plan (1) Ambulatory dysfunction: Plan: 57yo fell, mechanical fall, after slipping on water at home and fell on to her LEFT knee with ongoing LEFT HIP pain and ambulatory dysfunction No prodromal symptoms, syncope or trauma to her head/LOC Xray of the hip/pelvis negative for acute fracture or dislocation, unremarkable appearance of LEFT hip arthoplasty (done by Dr Burnham per patient) Xray LEFT knee without acute bony abnormality noted CT pelvis No acute fracture or dislocation identified, unremarkable appearance of left hip arthoplasty Pain control: tylenol, heat Did get dose of oxycodone this morning, additional dose of morphine 2mg IV prior to getting better pain control, resting this afternoon Changing prior Flexeril scheduled to BACLOFEN to see if any better control Toradol 10mg IV x 1 available prn, can make continued prn if effective. Will need to remove celebrex from home med list/add to allergies given reports having rash after given in June/July by Dr Burnham/PA -- she isn't sure if was celebrex or naproxen but has tolerated toradol in the past. will place on pepcid 10mg BID (given prior CTAP in July w/ likely underlying PUD, however hgb levels stable/elevated w/ hx COPD) Fall precautions, PT/OT consulted DVT Proph: Heparin SQ while inpatient Planned for MRI hip however unable to obtain (followed w/ [facility]/Dr Burnham in the past) 10/12 improvement in pain control but ongoing discomfort w/ standing/weight bearing - attempted MRI but unable due to artifact w/ her hip replacement Continue pain control w/ ice, tylenol, Continue baclofen over flexeril given better control with such Toradol remains available prn, topical voltaren gel pepcid for GI proph while on, does appear to have hx PUD earlier this year but ?if from celebrex rx in June. Hgb NOT low PT/OT evals --recs for rehab but patient hopeful for home w/ HHPT to continue working from home and scott see how she does w/ repeat therapy evals Messaged [facility] provider to see if inpatient/able to see --> in office today but reports seen while ago and sent to pain management for injection for iloasos bursitis (interestingly does have lateral/buttocks discomfort today) Pain management consulted as never had outpatient follow up w/ them for injection and ?if able to provide while inpatient Continued inpatient stay (2) Fall: Plan: Mechanical as above, pain control/therapy evals, pain management consulted as above (3) Acute hip pain: Plan: Stable but ongoing. See pain control as above, MRI ordered but unable to obtain while pain was anterior yesterday, now that pain a little more better controlled, does appear more w/ muscle strain/pull but ?underlying iliopsoas bursitis? Pain management consult placed (4) Tobacco abuse: Plan: As needed nicotine gum has been ordered, patient denies need for nicotine patch at this time Continue to stressed the importance of cessation Incentive spirometry and as needed O2 has been ordered (5) Sleep apnea: Plan: At bedtime CPAP ordered, has in room and using 96% on RA otherwise (6) Vitamin D deficiency: Plan: checked for completeness, low at 17.5 and PO replacement started and should be continued at discharge Plan continued inpatient stay, pain control/pain management consult placed PT/OT to re-eval w/ improvement in pain control to see about ability to dc w/ HHPT rather than inpatient rehab Admission and Anticipated Discharge Date Admission Date: October 11, 2023 Supervising Physician Co-Signing Physician Notes The patient was not seen by me. The chart was reviewed. Case discussed with ZITA Murcia. Agree with assessment and plan Subjective Eval this morning, sitting up at side of bed. Moving around a little better but difficulty with bearing weight when going to the bathroom this morning. Improvement w/ switch to baclofen and toradol for pain control. Per therapy recs, rehab recommended but she does report moving around a little better and repeat evals for tody w/ hopes of home with HHPT. 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 Will see if Stacy in building/able to stop by to see. No fever/chills, chest pain, shortness of breath, abdmoinal pain, nausea or vomiting. Physical Exam Physical Exam: General: WN/WD obese female sitting up at the side of the bed, appears improved, NAD HEENT: head atraumatic, normocephalic, +thick neck, trachea midline Resp: diminished in the bases but no w/c/r, on room air, CPAP in room CV: RRR, no significant m/r/g, no pitting edema/calf tenderness GI: +BS, soft/NT : no munoz MSK/Neuro: +abrasion/darkened L knee, +tenderness to palpation ANTERIOR LEFT H IP but also has tenderness to lateral/posterior aspect/buttocks today improvement in ability to flex at the hip but ongoing difficulty with weight bearing toes mobile/sensation intact no rashes/lesions no decreased leg length noted Psych: AOx3, cooperative with exam Results & Data Results & Data Vital Signs (Past 12 Hours) Vital Signs Temp Pulse Pulse Pulse Resp BP Pulse Ox 10/13/23 07:41 36.5 C 74 18 118/82 96 10/13/23 06:00 36.5 C 63 16 115/73 97 10/13/23 03:30 74 18 96 10/12/23 23:54 71 15 93 O2 Del Method FiO2 10/13/23 07:41 Room Air 10/13/23 06:00 Room Air 10/13/23 03:30 21 10/12/23 23:54 21 Laboratory Results 10/13/23 Range/Units 07:22 WBC 8.42 (4.8-10.8) K/ul RBC 5.77 H (4.20-5.40) M/uL Hgb 16.5 H (12.0-16.0) g/dl Hct 49.2 H (37.0-47.0) % MCV 85.3 (80.0-100.0) fL MCH 28.6 (25.0-34.0) pg MCHC 33.5 (32.0-36.0) g/dL RDW Std Deviation 46.1 (36.4-46.3) fL RDW Coeff of Elvia 15.0 H (11.5-14.5) % Plt Count 244 (130-400) K/uL MPV 9.6 (9.4-12.4) fL Sodium 139 (136-145) mmol/L Potassium 4.2 (3.5-5.1) mmol/L Chloride 106 (98-107) mmol/L Carbon Dioxide 28 (21-32) mmol/L Anion Gap 5 (3-11) BUN 18 (6-23) mg/dl Creatinine 0.86 (0.6-1.2) mg/dl Est Cr Clr Drug Dosing 100.4 ml/min Est GFR ( Amer) 86.9 ml/min Est GFR (Non-Af Amer) 75.0 ml/min BUN/Creatinine Ratio 20.9 H (10-20) Glucose 96 (70-99(Fasting)) mg/dl Calcium 8.8 (8.6-10.3) mg/dl Magnesium 2.3 (1.7-2.4) mg/dl 25-OH Vitamin D Total 17.5 L (30-100) ng/ml Lyme Disease Screen Negative (Negative) PG Care Time/CCT Total # of Minutes Spent Total Time Spent with Patient: Total time spent is greater than 50% in coordination of care (as documented) at patient's floor/unit and/or counseling patient: Coding Level of Care Code 59611 SUB INP/OBS CARE 3/50MIN Diagnoses Ambulatory dysfunction R26.2 Fall W19.XXXA Acute hip pain M25.552 Laterality: left Tobacco abuse Z72.0 Sleep apnea G47.30 Vitamin D deficiency E55.9 (3) Acute hip pain Laterality: left Qualified Code(s): M25.552 - Pain in left hip
[2023-10-13] MEDS: CHOLECALCIFEROL 25 MCG (1000 UNITS) TAB PO SCH (09:51)
[2023-10-13] MEDS: DICLOFENAC SOD 1% GEL 100 GM TUBE EXT SCH (13:59)
--- NOTE | 2023-10-14 08:14 | Hospitalist Progress Note ---
Date of Service October 14, 2023 Assessment & Plan (1) Ambulatory dysfunction: Plan: 57yo fell, mechanical fall, after slipping on water at home and fell on to her LEFT knee with ongoing LEFT HIP pain and ambulatory dysfunction No prodromal symptoms, syncope or trauma to her head/LOC Xray of the hip/pelvis negative for acute fracture or dislocation, unremarkable appearance of LEFT hip arthoplasty (done by Dr Burnham per patient) Xray LEFT knee without acute bony abnormality noted CT pelvis No acute fracture or dislocation identified, unremarkable appearance of left hip arthoplasty Pain control: tylenol, heat Did get dose of oxycodone this morning, additional dose of morphine 2mg IV prior to getting better pain control, resting this afternoon Changing prior Flexeril scheduled to BACLOFEN to see if any better control Toradol 10mg IV x 1 available prn, can make continued prn if effective. Will need to remove celebrex from home med list/add to allergies given reports having rash after given in June/July by Dr Burnham/PA -- she isn't sure if was celebrex or naproxen but has tolerated toradol in the past. will place on pepcid 10mg BID (given prior CTAP in July w/ likely underlying PUD, however hgb levels stable/elevated w/ hx COPD) Fall precautions, PT/OT consulted DVT Proph: Heparin SQ while inpatient Planned for MRI hip however unable to obtain (followed w/ [facility]/Dr Burnham in the past) 10/13 improvement in pain control but ongoing discomfort w/ standing/weight bearing - attempted MRI but unable due to artifact w/ her hip replacement Continue pain control w/ ice, tylenol, Continue baclofen over flexeril given better control with such Toradol remains available prn -- used 2 doses 10/12 topical voltaren gel pepcid for GI proph while on NSAIDs (does appear to have hx PUD earlier this year but ?if from celebrex rx in June. Hgb NOT low/no complaints of abd pain) PT/OT evals --recs for rehab but patient hopeful for home w/ HHPT to continue working from home and scott see how she does w/ repeat therapy evals but CM sending ref for rehab as well in case. Messaged [facility] provider to see if inpatient/able to see --> in office 10/12 but reports seen while ago and sent to pain management for injection for bursitis (interestingly does have lateral/buttocks discomfort today) Pain management consulted as never had outpatient follow up w/ them for injection and ?if able to provide while inpatient Also consulted ortho for eval Continued inpatient stay (2) Fall: Plan: Mechanical as above, pain control/therapy evals, pain management consulted as above (3) Acute hip pain: Plan: Stable but ongoing. See pain control as above, MRI ordered but unable to obtain while pain was anterior yesterday, now that pain a little more better controlled, does appear more w/ muscle strain/pull but ?underlying iliopsoas bursitis? Pain management consult placed (4) Tobacco abuse: Plan: As needed nicotine gum has been ordered, patient denies need for nicotine patch at this time Continue to stressed the importance of cessation Incentive spirometry and as needed O2 has been ordered (5) Sleep apnea: Plan: At bedtime CPAP ordered, has in room and using 96% on RA otherwise (6) Vitamin D deficiency: Plan: checked for completeness, low at 17.5 and PO replacement started and should be continued at discharge Plan continued inpatient stay, pain control/pain management consult placed PT/OT to re-eval w/ improvement in pain control to see about ability to dc w/ HHPT rather than inpatient rehab Admission and Anticipated Discharge Date Admission Date: October 13, 2023 Results & Data Results & Data Vital Signs (Past 12 Hours) Vital Signs Temp Pulse Pulse Resp BP Pulse Ox O2 Del Method 10/14/23 03:30 70 16 97 10/13/23 20:41 36.7 C 78 18 91/58 L 96 Room Air PG Care Time/CCT Total # of Minutes Spent Total Time Spent with Patient: Total time spent is greater than 50% in coordination of care (as documented) at patient's floor/unit and/or counseling patient: Coding Diagnoses Ambulatory dysfunction R26.2 Fall W19.XXXA Acute hip pain M25.552 Laterality: left Tobacco abuse Z72.0 Sleep apnea G47.30 Vitamin D deficiency E55.9 (3) Acute hip pain Laterality: left Qualified Code(s): M25.552 - Pain in left hip
[2023-10-14 08:20] LABS: Hematocrit (blood only) 49.6 % (37.0-47.0); Hemoglobin 16.9 g/dl (12.0-16.0); Mean Corpuscular Hemoglobin 29.2 pg (25.0-34.0); Mean Corpuscular Hgb Conc 34.1 g/dL (32.0-36.0); Mean Corpuscular Volume 85.8 fL (80.0-100.0); Mean Platelet Volume 9.8 fL (9.4-12.4); Platelet Count 271 K/uL (130-400); RDW Coefficient of Variation 14.9 % (11.5-14.5); RDW Standard Deviation 45.8 fL (36.4-46.3); Red Blood Count 5.78 M/uL (4.20-5.40); White Blood Count 7.83 K/ul (4.8-10.8)
[2023-10-14 08:55] LABS: BUN Creatinine Ratio 23.8 (10-20); Creatinine Clr Calc Pharmacy 107.9 ml/min; Est GFR (African American) 94.9 ml/min; Est GFR (Non-African American) 81.8 ml/min; Magnesium 2.2 mg/dl (1.7-2.4); Potassium 4.3 mmol/L (3.5-5.1)
--- NOTE | 2023-10-14 09:29 | Pain Management Consultation ---
Date of Consultation October 14, 2023 Assessment & Plan (1) Fall: (2) Acute hip pain: Laterality: left Qualified Code(s): M25.552 - Pain in left hip (3) History of total hip arthroplasty: (4) Left hip flexor tightness: (5) Tendinitis of left hip flexor: Plan 1. Currently, no indication for a pain management interventional procedure, especially with the patient improving significantly on oral muscle relaxers and pain medications. 2. Patient's symptoms are more consistent with an anterolateral hip flexor spasm, possibly proximal rectus femoris or sartorius. With the patient having her left total hip arthroplasty present since 2003, it seems unlikely that iliopsoas bursitis is just now more recently starting to occur. Her pain does seem to be more lateral than that location, and the patient states herself today that "it feels like I was having muscle spasms". Also, she did have a fall injury that would explain a more acute injury process that is the cause to her current symptom profile, as opposed to an ongoing bursitis. * With that said, if the patient does have significant recurrence of symptoms once she is out of the hospital, then I have instructed her to follow-up with Dr. Aguirre of [facility] for sports medicine evaluation. 3. Recommend continuing oral muscle relaxers as needed for outpatient use. Pain management service will sign off at this time. History of Present Illness Reason for Consultation: fall, ileopsoas bursitis, prior ref by ortho, ?inj Requesting Physician: Cara Infante PA-C Attending Physician: Andrés Wisdom MD History of Present Illness Patient is a 57-year-old female that presented to the [facility] ED on 10/11/2023 with a chief complaint of left hip pain after mechanical fall earlier that day. She has a history of left total hip arthroplasty performed about 20 years (2003) ago by Dr. Burnham of [facility]. Patient states she fell in her house on some liquid that was on the floor and she fell onto the anterior aspect of her left knee, which did jam her left femur into the hip socket. Patient states she began to have pain acutely in her left hip after the fall. She denied any pain in her left knee on arrival. Patient stated the pain is in the area of her left hip, and she did have some limited ability to flex at the left hip, but it was very painful doing so. Patient states she was not able to put weight on the left lower extremity after the fall, but she was able to ambulate up on her right lower extremity and utilize the wall for stability to call for assistance. Today, the patient localizes her pain to the anterior lateral left hip, which she seems to describe as being musculature and she is experiencing spasms. She does not have any posterior or lateral hip pain. She does not have any particular groin pain. Patient denies any radicular type pain down the left lower extremity. She says that they changed her muscle relaxer from Flexeril to baclofen, and since this has happened she has been feeling much better. She seems to indicate that the spasms have mostly gone away. Case discussed with Dr. Marilee Montelongo. Pain Assessment Full Body Front + Back: 2 1. Allergies Allergy/AdvReac Type Severity Reaction Status Date / Time clindamycin Allergy Hives Verified 07/09/23 09:38 Home Medications Medication Instructions Recorded Confirmed Type ondansetron 4 mg disintegrating 4 mg PO Q6H PRN nausea and 07/09/23 10/11/23 Rx tablet vomiting #15 tabs semaglutide (weight loss) 0.25 0.25 mg subcut WK 10/11/23 10/11/23 History mg/0.5 mL subcutaneous pen injector (Wegovy) baclofen 10 mg tablet 10 mg PO TID #30 tabs 10/14/23 Rx cholecalciferol (vitamin D3) 25 25 mcg PO QAM #30 caps 10/14/23 Rx mcg (1,000 unit) capsule diclofenac sodium 1 % topical gel 2 g EXT TID #100 grams 10/14/23 Rx (Voltaren Arthritis Pain) famotidine 10 mg tablet (Acid 10 mg PO BID #30 tabs 10/14/23 Rx Solution Spec (famotidine)) oxycodone 5 mg tablet 5 mg PO Q4H PRN pain #10 tabs 10/14/23 Rx Pain History Previous Imaging and Results Imaging: Hip/Pelvis X-Ray 10/11/23 09:46 XR hip JACKSON 2v w pelvis HISTORY: 57 years-old Female fall. L hip pain acute hemipelvis and left hip status post fall COMPARISON: CT 07/09/2023 TECHNIQUE: AP view of the pelvis with 2 views of the hips FINDINGS: Unremarkable appearance of the left hip arthroplasty. Surgical anchors noted within the left greater tuberosity. Mild osteoarthritis of the right hip. No acute fracture or dislocation. IMPRESSION: 1. No acute fracture or dislocation. 2. Unremarkable appearance of the left hip arthroplasty. ACT 112: Negative or not required by law. The above report was generated using voice recognition software. It may contain grammatical, syntax or spelling errors. Electronically signed by: Wesly Saavedra M.D. 10/11/2023 11:09 AM Knee X-Ray 10/11/23 09:50 LEFT KNEE 2 VIEWS CLINICAL HISTORY: Fall. Left knee pain. FINDINGS: AP and crosstable lateral views of the left knee are obtained. No prior studies are available for comparison at the time of dictation. The skeletal structures are well mineralized. No fracture is seen. The joint spaces are maintained. There are marginal osteophytes and degenerative beaking of the tibial spine. No joint effusion is seen. A calcified fabella is incidentally noted. There is prepatellar soft tissue swelling. IMPRESSION: No acute bony abnormality is identified. Electronically signed by: Conor Salgado M.D. 10/11/2023 10:[address] 10/11/23 11:23 CT pelvis wo con HISTORY: 57 years-old Female L hip/groin pain s/p fall acute pain of the left hip status post fall COMPARISON: Radiographs of same day, CT 07/09/2023 TECHNIQUE: Multiple axial CT images of the pelvis were obtained without IV contrast. A dose lowering technique was used consistent with the principals of ALARA. FINDINGS: Atherosclerosis of the aorta. Mildly distended urinary bladder. Slight prominence of the anteflexed uterus with possible uterine fibroids. No bowel obstruction or bowel wall thickening. No free fluid. No lymphadenopathy. Unremarkable appearance of the musculature. Degenerative changes of the imaged lower lumbar spine. Mild degeneration of the SI joints. No acute sacral insufficiency fracture identified. Moderate degeneration of the pubic symphysis. Mild right hip osteoarthritis. Unremarkable appearance of the visualized left hip arthroplasty. Study is limited secondary to surrounding streak artifact. Surgical anchors in the left greater trochanter. IMPRESSION: 1. No acute fracture or dislocation identified. 2. Unremarkable appearance of the left hip arthroplasty. ACT 112: Negative or not required by law. The above report was generated using voice recognition software. It may contain grammatical, syntax or spelling errors. Electronically signed by: Wesly Saavedra M.D. 10/11/2023 1:00 PM Patient History Medical History (Updated 10/15/23 @ 12:34 by Parker White PA-C) Morbid obesity Sleep apnea CPAP Surgical History History of wisdom tooth extraction History of arthroscopy RT KNEE History of total hip arthroplasty LEFT History of bilateral tubal ligation History of section X 3 History of dilatation and curettage History of colonoscopy H/O varicose vein stripping Family History Grandfather (Maternal) Family history of diabetes mellitus Grandfather (Paternal) Family history of diabetes mellitus Grandmother (Paternal) Family history of diabetes mellitus Grandmother (Maternal) Family history of diabetes mellitus Social History Smoking Status: Current every day smoker Tobacco Type: Cigarettes Cigarettes Per Day: 10-15 CIGARETTES PER DAY X 9 YEARS; Second Hand Exposure: No; Do You Dip or Chew Tobacco: No; Hx Alcohol Use: Yes Alcohol type: beer, wine and hard liquor Hx Substance Use: No Preferred Language: Lao Communication Ability: Effective 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 HEAD/FACE: Normocephalic and atraumatic. RESPIRATORY: Patient with unlabored breathing. No signs of respiratory distress. SKIN: [place], warm and dry. No rash noted. MS/EXTREMITY: No swelling, no deformities. Moving extremities appropriately. NEURO: Alert and appears oriented. Speech is fluent. PSYCH: Alert, pleasant, affect is calm. Musculoskeletal: Hip: + surgical incision, + limited ROM of hip and + FADIR test positive; no skin erythema, no ecchymosis, no joint line tenderness, KUSHAL test negative and log roll test negative + TTP left anterolateral hip flexor atnonietta on
--- NOTE | 2023-10-14 12:44 | Discharge Summary ---
Date of Service October 14, 2023 Admission HPI Per Admitting Provider Bettina is a 57-year-old female with a past medical history significant for morbid obesity, tobacco abuse, GERD, and left hip replacement approximately 20 years ago who presented to the [facility] ED via EMS with a chief complaint of left lower extremity pain and ambulatory dysfunction after sustaining a fall due to slipping in her bathroom earlier today. She remained stable in the ED. Labs including CBC, CMP, and high-sensitivity troponin were unremarkable. X-ray of the hip/pelvis, left knee, and CT of the pelvis were all read as negative for acute findings. We are asked to admit the patient for ongoing pain control and evaluation by PT/OT. Prior to admission the patient was given 2 doses of 4 mg IV morphine, 4 mg IV Zofran, and 10 mg p.o. Flexeril. Patient was sitting on the edge of her bed in no acute distress at time of the exam. She confirms that she had been in her normal state of health while walking in her hallway this morning when she slipped on some water which she did not notice on the floor. This caused her to fall landing on her left knee. She denies symptoms prior to her fall such as lightheadedness, dizziness, shortness of breath, chest pain, palpitations. She did not hit her head or lose consciousness. Her only pain has been in the left hip/groin significantly exacerbated with attempts to flex her left hip and left knee. She notes that her discomfort is caused by significant muscle spasms with movement at this time. Her symptoms are mild at rest but she has been unable to safely ambulate even with the use of a walker since arrival. She states that the morphine did not help, she is hoping the muscle relaxer will kick in soon as she just took this approximately 10 minutes ago. She smokes approximately 1/2 pack/day but denies alcohol use. She denies any other pain at this time including head, neck, back, chest, abdominal, and right lower extremity pain. She is a full code and she would want her son to make medical decisions for her if she cannot make them herself. Please refer to Dr. Toure's attestation for any changes to the treatment plan Admission Exam Per Admitting Provider Physical Exam: General: In no acute distress, stated age, well-nourished, non-toxic appearing HEENT: Normocephalic, atraumatic, no scleral icterus, pupils around round, symmetrical, and reactive to light, moist mucus membranes, trachea midline, no thyromegaly Chest/Pulm: No respiratory distress, symmetrical chest expansion, clear breath sounds throughout Cardiac: RRR, no murmurs noted Abdomen: Negative for ascites and bruising, normoactive bowel sounds, soft, non- tender to palpation throughout Musculoskeletal: Patient with significant muscle spasms in the left quadriceps and left groin with attempted flexion of the left hip and left knee, no acute trauma noted on inspection and palpation of the left hip, knee, foot, and RLE. No signs of trauma on inspection and palpation of the head, neck, thoracic /lumbar spine, and RLE Extremities: Radial, dorsalis pedis, and posterior tibial pulses are intact and symmetrical, no edema noted in the LE's Skin: Warm, dry, no rashes , lesions, or scars noted Neuro: Alert and oriented to person, place, month, year, and president, no focal defects, symmetrical sensation and distal reflexes in the LE's Psych: No acute distress, calm and cooperative during the exam Principal Diagnosis Fall, Acute hip pain, MSK strain Discharge Exam General: WN/WD obese female sitting up at the side of the bed, appears improved, NAD HEENT: head atraumatic, normocephalic, +thick neck, trachea midline Resp: diminished in the bases but no w/c/r, on room air, CPAP in room CV: RRR, no significant m/r/g, no pitting edema/calf tenderness GI: +BS, soft/NT : no munoz MSK/Neuro: +abrasion/darkened L knee, +tenderness to palpation ANTERIOR LEFT HIP IMPROVED, some lateral discomfort but also improved compared to day prior Improved ROM and able to flex at knees and move around in bed better per patient .no decreased leg length noted Psych: AOx3, cooperative with exam Discharge Data Allergies Allergy/AdvReac Type Severity Reaction Status Date / Time clindamycin Allergy Hives Verified 07/09/23 09:38 Consultations 10/11/23 15:17 ED Decision to Admit Stat 10/13/23 11:01 Consult Pain Management Routine 10/13/23 15:32 Consult Orthopedic Surgery Routine Ordered Studies Hip/Pelvis X-Ray 10/11/23 09:46 XR hip JACKSON 2v w pelvis HISTORY: 57 years-old Female fall. L hip pain acute hemipelvis and left hip status post fall COMPARISON: CT 07/09/2023 TECHNIQUE: AP view of the pelvis with 2 views of the hips FINDINGS: Unremarkable appearance of the left hip arthroplasty. Surgical anchors noted within the left greater tuberosity. Mild osteoarthritis of the right hip. No acute fracture or dislocation. IMPRESSION: 1. No acute fracture or dislocation. 2. Unremarkable appearance of the left hip arthroplasty. ACT 112: Negative or not required by law. The above report was generated using voice recognition software. It may contain grammatical, syntax or spelling errors. Electronically signed by: Wesly Saavedra M.D. 10/11/2023 11:09 AM Knee X-Ray 10/11/23 09:50 LEFT KNEE 2 VIEWS CLINICAL HISTORY: Fall. Left knee pain. FINDINGS: AP and crosstable lateral views of the left knee are obtained. No prior studies are available for comparison at the time of dictation. The skeletal structures are well mineralized. No fracture is seen. The joint spaces are maintained. There are marginal osteophytes and degenerative beaking of the tibial spine. No joint effusion is seen. A calcified fabella is incidentally noted. There is prepatellar soft tissue swelling. IMPRESSION: No acute bony abnormality is identified. Electronically signed by: Conor Salgado M.D. 10/11/2023 10:[address] 10/11/23 11:23 CT pelvis wo con HISTORY: 57 years-old Female L hip/groin pain s/p fall acute pain of the left hip status post fall COMPARISON: Radiographs of same day, CT 07/09/2023 TECHNIQUE: Multiple axial CT images of the pelvis were obtained without IV contrast. A dose lowering technique was used consistent with the principals of ALARA. FINDINGS: Atherosclerosis of the aorta. Mildly distended urinary bladder. Slight prominence of the anteflexed uterus with possible uterine fibroids. No bowel obstruction or bowel wall thickening. No free fluid. No lymphadenopathy. Unremarkable appearance of the musculature. Degenerative changes of the imaged lower lumbar spine. Mild degeneration of the SI joints. No acute sacral insufficiency fracture identified. Moderate degeneration of the pubic symphysis. Mild right hip osteoarthritis. Unremarkable appearance of the visualized left hip arthroplasty. Study is limited secondary to surrounding streak artifact. Surgical anchors in the left greater trochanter. IMPRESSION: 1. No acute fracture or dislocation identified. 2. Unremarkable appearance of the left hip arthroplasty. ACT 112: Negative or not required by law. The above report was generated using voice recognition software. It may contain grammatical, syntax or spelling errors. Electronically signed by: Wesly Saavedra M.D. 10/11/2023 1:00 PM Hospital Course (1) Ambulatory dysfunction: 57yo fell, mechanical fall, after slipping on water at home and fell on to her LEFT knee with ongoing LEFT HIP pain and ambulatory dysfunction. No prodromal symptoms, syncope or trauma to her head/LOC Admitted for further evaluation of possible fracture, ongoing pain control and therapy evaluations/possible rehab placement Xray of the hip/pelvis negative for acute fracture or dislocation, unremarkable appearance of LEFT hip arthroplasty (done by Dr Burnham per patient) Xray LEFT knee without acute bony abnormality noted CT pelvis No acute fracture or dislocation identified, unremarkable appearance of left hip arthroplasty MRI unable to be done given replacement however did appear more MSK/strain on exam and did discuss w/ prior ortho provider who sent to pain management for possible injection for psoas bursitis however didn't make appt and was consulted while inpatient but acute episode more likely muscular strain given improvement w/ medications and can consider outpt f/u Dr Lara if needed for US guided injection if has recurrence of symptoms For pain control, was placed on scheduled Flexeril without much improvement and switched Flexeril to baclofen 10mg TID for muscle spasm with prn toradol IV (2 doses on 10/12, nothing further. did start/continue topical voltaren) and initially had PT/OT evals which recommended inpatient rehab however patient was hoping to go home and repeat evals with ongoing pain control and ice w/ significant improvement and ability to return home and provided rx for outpatient therapy. sent rx for reflux med which she does report she has at home, no issues while inpatient Vit D checked and was low as well, started and sent on PO replacement Outpt f/u PCP and orthopedics as desired, consideration for pain management for injection as discussed if recurrence of symptoms (2) Fall: As above, mechanical in nature. significant improvement w/ therapy evals w/ improved pain control and ability to return home. rx for outpt therapy provided. outpt f/u (3) Acute hip pain: IMPROVING as above (4) Tobacco abuse: As needed nicotine gum has been ordered, patient denies need for nicotine patch at this time. Cessation recommended 94% on RA (5) Sleep apnea: At bedtime CPAP ordered, has in room and using (6) Vitamin D deficiency: checked for completeness, low at 17.5 and PO replacement started continued at discharge Plan discharged home with baclofen TID prn muscle spasm, topical voltaren, ice. Rx for outpatient therapy. F/u PCP next week, return to ER for any worsening symptoms Total Time Total Time Spent Total Time Spent (In Minutes): 45 Discharge Plan Discharge Items Patient Disposition: Home - Self-Care Reason For Visit: MECHANICAL FALL, MUSCLE SPASMS, AMBULATORY DYSFUN Discharge Diagnosis: FALL, MUSCLE SPASM, AMBULATORY DYSFUNCTION Condition on Discharge: Good Goals: You have been hospitalized for an acute medical problem. During your stay at [facility], we have made an effort to correct the problem that brought you to the hospital while keeping you as comfortable as possible. Medications were used to bring your condition under control and your discharge instructions will include directions for any medications you should take after leaving the hospital. Please make sure you see your Primary Care Provider as part of your follow up plan. Activity: As commented below Activity Comment: INCREASE ACTIVITY TOLERATED Non-emergency contact: Primary Care Provider and Surgeon Call non-emergency contact if: you have any medication questions, your symptoms worsen, your pain is not controlled and your pain is concerning for you Follow-up/Referrals: Adams Aguirre MD [Physician] - Helio Orozco D.O. [Primary Care Provider] - (DOREEN AT OFFICE ; KEVIN RN WILL CALL PATIENT WITH A HOSPITAL FOLLOW UP VISIT IN 7-10 DAYS.) Diet: Heart Healthy Addtl Attending Provider Instructions: You have been hospitalized after a fall at home and having left hip pain. Imaging was negative for acute fracture and this appears to be more musculoskeletal in nature. Pain management was consulted and no need for acute injection given improvement with ice/muscle relaxers and baclofen has been continued at discharge along with topical voltaren and you can continue ice. Your vitamin D level was checked and low and replacement ordered and continued at discharge. You have been provided a prescription for outpatient physial therapy but can also follow up with Dr Aguirre at [facility] for consideration for injection in the future if any ongoing issues. Please follow up with primary care in the next 7-10 days after discharge. Please return to the ER with any worsening pain, fever, or for any other symptom concerning for you. It has been a pleasure being a part of the medical team providing for you while you have been in the hospital. Take care! Vitamin D level low Pending Studies at Discharge: No Stand-Alone Forms: My [facility], Pain - Opioid Pain Management, Work/School Release, Smoking Cessation Medications and DC Order Prescriptions: New baclofen 10 mg Tablet 10 mg PO TID Qty: 30 0RF diclofenac sodium [Voltaren Arthritis Pain] 1 % Gel 2 g EXT TID Qty: 100 0RF famotidine [Acid Senior [employer] (famotidine)] 10 mg Tablet 10 mg PO BID Qty: 30 0RF oxycodone 5 mg Tablet 5 mg PO Q4H PRN (Reason: pain) Qty: 10 0RF cholecalciferol (vitamin D3) 25 mcg (1,000 unit) Capsule 25 mcg PO QAM Qty: 30 0RF Continued ondansetron 4 mg tablet,disintegrating 4 mg PO Q6H PRN (Reason: nausea and vomiting) Qty: 15 0RF Rx Instructions: filled july 2023, 4 day supply Wegovy 0.25 mg/0.5 mL pen injector 0.25 mg SUBCUT WK Rx Instructions: filled 10/04/23 Discontinued celecoxib 200 mg capsule 200 mg PO BID Rx Instructions: filled june 2023 30 day supply Discharge Orders: Discharge Order (Routine); Ordered 10/14/23 Ordered By: Cara Infante Admission Data Admit Date/Time: 10/13/23 15:50 Attending Provider: Andrés Wisdom Admit Provider: Andrés Wisdom Primary Care Provider: Helio Orozco Other Providers: Damir Toure; Marilee Montelongo; [place]; Juan Burnham Other Interventions: Discharge Summary Assessment (RN) Last Done: 10/14/23 13:45 Supervising Physician Co-Signing Physician Notes The patient was not seen by me. The chart was reviewed. Case discussed with ZITA Murcia. Agree with assessment and plan Coding Level of Care Code 78802 INP/OBS DISCH >30 MIN Diagnoses Ambulatory dysfunction R26.2 Fall W19.XXXA Acute hip pain M25.552 Laterality: left Tobacco abuse Z72.0 Sleep apnea G47.30 Vitamin D deficiency E55.9
== END 2023-10-14 15:24 | disposition home or self-care (01) | DRG 537 ==
LOC: ED 09:29 → 3W 09:29 → SUATTDRO 15:27 → 3W 17:08